=== PATIENT | male | born 1935 | race Caucasian/White ===

== ENCOUNTER → 2016-06-27 | Outpatient (CLI) | payer OTHER, BC | LOC: BHFA 14:45 | PROVIDERS: ATTEND Internal Medicine Cardiovascular Disease | DX: I50.33 Acute on chronic diastolic (congestive) heart failure (principal); R06.02 Shortness of breath; R60.9 Edema, unspecified; E66.9 Obesity, unspecified; J44.9 Chronic obstructive pulmonary disease, unspecified; N18.9 Chronic kidney disease, unspecified ==

== ENCOUNTER 2016-07-31 18:06 | Inpatient (IN) | payer OTHER, BC ==
--- NOTE | 2016-07-31 18:36 | CPEKG ---
Heart Rate: 66 RR Interval: 909 P-R Interval: 167 QRSD Interval: 102 QT Interval: 492 QTC Interval: 516 P [place]: 0 QRS [place]: 12 T Wave [place]: 181 EKG Severity - ABNORMAL ECG - EKG Impression: UNKNOWN RHYTHM, IRREGULAR RATE 49-93 EKG Impression: PROBABLE INFERIOR INFARCT, AGE INDETERMINATE EKG Impression: PROBABLE POSTERIOR INFARCT EKG Impression: REPOL ABNRM SUGGESTS ISCHEMIA, DIFFUSE LEADS EKG Impression: PROLONGED QT INTERVAL Electronically Signed By: Sameer Beal 31-Jul-2016 21:03:46
[2016-07-31 18:45] LABS: % IMMATURE GRANULYOCYTES 1.3 % (0.0-1.1); ABSOLUTE IMMATURE GRANULOCYTES 0.19 10^3/uL (0.00-0.10); ADD DIFF? NO; ADD MORPH? NO; ADD SCAN? NO; ATYPICAL LYMPHOCYTE FLAG 0 (0-99); FRAGMENT RBC FLAG 20 (0-99); HEMATOCRIT 31.9 % (40.0-51.0); HEMOGLOBIN 10.1 g/dL (13.7-17.5); LEFT SHIFT FLG 0 (0-99); LIPEMIA HEMOLYSIS FLAG 80 (0-99); MEAN CELL HEMOGLOBIN 23.5 pg (27.9-34.1); MEAN CELL HEMOGLOBIN CONCENTR. 31.7 g/dL (32.4-36.7); MEAN CELL VOLUME 74.2 fL (81.5-99.8); MEAN PLATELET VOLUME 8.5 fL (8.7-11.7); PLATELET CLUMPS FLAG 0 (0-99); PLATELET COUNT 560 10^3/uL (150-400); RED CELL DISTRIBUTION WIDTH 15.8 % (11.5-15.2)
--- NOTE | 2016-07-31 18:54 | EDPHY ---
HPI/HX/ROS/PE/MDM Narrative: CHIEF COMPLAINT: Weakness, multiple falls, hyponatremia, hypokalemia HISTORY OF PRESENT ILLNESS: The patient is an anticoagulated 81 y/o male arriving with his at the referral of his PCP for worsening weakness and frequent falls over the last week. He has a history of atrial fibrillation, COPD , CHF with baseline dyspnea. He was evaluated by Dr. Saleem on 07/27, 5 days ago, and his labs showed hyponatremia at 126 and hypokalemia at 3.1. He's had worse- than-normal shortness of breath since his weakness began and his notes he' s been coughing for the past several months. In addition to several falls this week, he fell and struck his face this morning. His states he became weak and she tried to help him to the ground, but also fell. He denies chest pain at any point. His reports he has not been eating much since symptom onset and he tells me he just isn't hungry. He is minimally contributive during assessment and his provides the majority of the patient's history. No fever, chills, chest pain, palpitations, vomiting, diarrhea, urinary complaints, headache, lightheadedness. REVIEW OF SYSTEMS: Aside from elements discussed in the HPI, a comprehensive 10-point review of systems was reviewed and is negative. PAST MEDICAL HISTORY: COPD, CHF, atrial fibrillation - Xarelto SOCIAL HISTORY: at bedside. Paraprofessional Interpreter: Dr. Saleem PCP: Dr. Gillespie VITAL SIGNS: Reviewed by me GENERAL: Moderately obese, resting comfortably in no respiratory distress. HEENT: Abrasion to left cheek and forehead. Eyes: No icterus, no injection. Mouth: moist mucous membranes. No erythema or lesions. Neck: supple with no adenopathy. LUNGS: Rales to mid chest bilaterally, no wheezes, rhonchi CARDIAC: Irregular rate and rhythm, no rubs, murmurs or gallops. ABDOMEN: Soft, obese abdomen, diffuse mild tenderness, nondistended, bowel sounds normal. BACK: No CVA tenderness. EXTREMITIES: No trauma. Trace pitting pedal edema bilaterally. Range of motion is normal throughout. NEURO: Alert and oriented, grossly nonfocal. SKIN: Warm and dry, no rash. PSYCHIATRIC: Normal mentation, no agitation. Portions of this note were transcribed by a biomedical engineering supervisor. I personally performed a history, physical exam, medical decision making, and confirmed accuracy of information the transcribed note. ED Course: This is an 81 y/o male who presents with a 1-week history of weakness and frequent falls and hyponatremia and hypokalemia on his most recent labs 5 days ago. During his most recent fall this morning he struck the left side of his face. He denies other trauma. He is neurovascularly intact on exam. He has some rales along his mid chest bilaterally on auscultation and mild diffuse abdominal tenderness. His ISTAT here shows Na 122, K 2.2, BUN 71 creatinine 2.9. IV established. Labs drawn. Patient placed on electronic device monitor. Head CT and chest x-ray ordered. 1L IV NS, 10meq IV Potassium, and 60meq PO Potassium administered. The 12 lead EKG was interpreted by myself. Sinus rhythm rate 66, ST depression lateral leads, prolonged QT interval, See hard copy and/or "tracemaster" electronic copy for interpretation. Patient's troponin is elevated at 0.071, with a normal BNP. 2008: Head CT negative. Chest x-ray shows cardiomegaly and poor inspiratory effort. Spoke with hospitalist service. Dr. Oconnell accepts admission. MDM: Differential diagnosis of the patient's weakness was considered including but not limited to electrolyte abnormality, anemia, cardiac ischemia, CVA, spinal cord abnormality, and infectious causes. - Data Points Imaging Results: Imaging Impressions Head CT 07/31/16 18:58 Impression: 1. No significant intracranial abnormality seen. Findings discussed with Marimar Thibodeaux MD at 20:08 hour, 07/31/2016. Chest X-Ray 07/31/16 19:09 Impression: 1. Poor inspiration with compressive changes at the lung bases left side more than right. Allowing for this, no active cardiopulmonary disease seen. Imaging: Discussed imaging studies w/ on call Radiologist, I viewed and interpreted images myself Laboratory Results: Laboratory Results 07/31/16 18:35 07/31/16 18:35 07/31/16 07/31/16 07/31/16 19:02 18:40 18:35 WBC RBC Hgb POC Hgb 11.9 gm/dL L gm/dL (14.5-17.3) Hct POC Hct 35 % L % (42.8-50.6) MCV MCH MCHC RDW Plt Count MPV Neut % (Auto) Lymph % (Auto) [place] % (Auto) Eos % (Auto) Baso % (Auto) Nucleat RBC Rel Count Absolute Neuts (auto) Absolute Lymphs (auto) Absolute Monos (auto) Absolute Eos (auto) Absolute Basos (auto) Absolute Nucleated RBC Immature Gran % Immature Gran # POC Sodium 122 mEq/L L mEq/L (134-144) Sodium 121 mEq/L L mEq/L (134-144) POC Potassium 2.2 mEq/L L* mEq/L (3.3-5.0) Potassium 2.7 mEq/L L* mEq/L (3.5-5.2) POC Chloride 77 mEq/L L mEq/L (96-108) Chloride 76 mEq/L L mEq/L (97-110) Carbon Dioxide 28 mEq/l mEq/l (22-31) Anion Gap 17 mEq/L H mEq/L (8-16) POC BUN 71 mg/dL H mg/dL (7-23) BUN 74 mg/dL H mg/dL (7-23) Creatinine 2.7 mg/dL H mg/dL (0.7-1.3) POC Creatinine 2.9 mg/dL H mg/dL (0.8-1.5) Estimated GFR 23 Glucose 161 mg/dL H mg/dL (70-100) POC Glucose 166 mg/dL H mg/dL (70-100) Calcium 9.9 mg/dL mg/dL (8.5-10.4) Total Bilirubin 0.9 mg/dL mg/dL (0.1-1.4) Conjugated Bilirubin 0.5 mg/dL mg/dL (0.0-0.5) Unconjugated Bilirubin 0.4 mg/dL mg/dL (0.0-1.1) AST 62 IU/L H IU/L (17-59) ALT 137 IU/L H IU/L (21-72) Alkaline Phosphatase 94 IU/L IU/L (38-126) Troponin I 0.071 ng/mL H ng/mL (0-0.034) NT-Pro-B Natriuret Pep 382 pg/mL pg/mL (0-450) Total Protein 7.5 g/dL g/dL (6.3-8.2) Albumin 4.4 g/dL g/dL (3.5-5.0) Lipase 388.0 IU/L H IU/L (23-300) 07/31/16 18:35 WBC 14.97 10^3/uL H 10^3/uL (3.80-9.50) RBC 4.30 10^6/uL L 10^6/uL (4.40-6.38) Hgb 10.1 g/dL L g/dL (13.7-17.5) POC Hgb Hct 31.9 % L % (40.0-51.0) POC Hct MCV 74.2 fL L fL (81.5-99.8) MCH 23.5 pg L pg (27.9-34.1) MCHC 31.7 g/dL L g/dL (32.4-36.7) RDW 15.8 % H % (11.5-15.2) Plt Count 560 10^3/uL H 10^3/uL (150-400) MPV 8.5 fL L fL (8.7-11.7) Neut % (Auto) 82.2 % H % (39.3-74.2) Lymph % (Auto) 5.3 % L % (15.0-45.0) [place] % (Auto) 11.1 % % (4.5-13.0) Eos % (Auto) 0.0 % L % (0.6-7.6) Baso % (Auto) 0.1 % L % (0.3-1.7) Nucleat RBC Rel Count 0.0 % % (0.0-0.2) Absolute Neuts (auto) 12.30 10^3/uL H 10^3/uL (1.70-6.50) Absolute Lymphs (auto) 0.80 10^3/uL L 10^3/uL (1.00-3.00) Absolute Monos (auto) 1.66 10^3/uL H 10^3/uL (0.30-0.80) Absolute Eos (auto) 0.00 10^3/uL L 10^3/uL (0.03-0.40) Absolute Basos (auto) 0.02 10^3/uL 10^3/uL (0.02-0.10) Absolute Nucleated RBC 0.00 10^3/uL 10^3/uL (0-0.01) Immature Gran % 1.3 % H % (0.0-1.1) Immature Gran # 0.19 10^3/uL H 10^3/uL (0.00-0.10) POC Sodium Sodium POC Potassium Potassium POC Chloride Chloride Carbon Dioxide Anion Gap POC BUN BUN Creatinine POC Creatinine Estimated GFR Glucose POC Glucose Calcium Total Bilirubin Conjugated Bilirubin Unconjugated Bilirubin AST ALT Alkaline Phosphatase Troponin I NT-Pro-B Natriuret Pep Total Protein Albumin Lipase Medications Given: Discontinued Medications Potassium Chloride (Potassium Cl 10 Meq (Premix)) 100 mls @ 100 mls/hr IV EDNOW ONE Stop: 07/31/16 19:55 Last Admin: 07/31/16 20:09 Dose: 100 mls Sodium Chloride (Ns) 1,000 mls @ 0 mls/hr IV ONCE ONE PRN Reason: Wide Open Stop: 07/31/16 18:58 Last Admin: 07/31/16 20:09 Dose: 1,000 mls Potassium Chloride (Klor-Con) 60 meq PO ONCE ONE Stop: 07/31/16 18:57 Last Admin: 07/31/16 20:09 Dose: 60 meq Point of Care Test Results: 07/31/16 18:40 POC Sodium 122 L POC Potassium 2.2 L* POC Chloride 77 L POC BUN 71 H POC Creatinine 2.9 H POC Glucose 166 H General Time Seen by Provider: 07/31/16 18:23 Initial Vital Signs: Initial Vital Signs Temperature (C) 36.3 C 07/31/16 18:16 Heart Rate 64 07/31/16 18:16 Respiratory Rate 18 07/31/16 18:16 Blood Pressure 107/64 07/31/16 18:16 O2 Sat (%) 93 07/31/16 18:16 O2 Delivery Mode Nasal Cannula O2 (L/minute) 4 Allergies/Adverse Reactions: No Known Allergies Allergy (Verified 07/31/16 18:15) Home Medications: Medication Instructions Recorded Brimonidine 0.1% [ALPHAGAN P 0.1% 1 drops EACHEYE DAILY 07/31/16 (*)] Diltiazem HCl [Diltiazem 24Hr Cd] 360 mg PO DAILY 07/31/16 Fluticasone Nasal [Flonase Nasal 1 sprays NASAL BID PRN 07/31/16 [place] (RX)] Latanoprost 0.005% [Xalatan 0.005% 1 drops EACHEYE HS 07/31/16 (*)] Metolazone [Zaroxolyn 2.5 mg (RX)] 2.5 mg PO MOFR 07/31/16 Rivaroxaban [Xarelto 15mg (*)] 15 mg PO DAILY@18 07/31/16 Spironolactone [Aldactone 25 MG 25 mg PO DAILY 07/31/16 (*)] Torsemide [Demadex] 60 mg PO BID 07/31/16 Umeclidinium Brm/Vilanterol Tr 1 each IH DAILY 07/31/16 [Anoro Ellipta 62.5-25 Mcg INH] Departure - Departure Disposition: [facility] Inpatient Acute Clinical Impression: Hyponatremia, Hypokalemia, Weakness, Multiple falls Condition: Fair Report Scribed for: Marimar Thibodeaux Report Scribed by: Bettina South Date of Report: 07/31/16 Time of Report: 18:54
[2016-07-31] MEDS ORDERED: POTASSIUM Cl (KCl) 100 ML IV ONE (18:56)
[2016-07-31] MEDS ORDERED: POTASSIUM CL 20 MEQ TAB PO ONE ×2 (18:56→22:35)
[2016-07-31] MEDS ORDERED: NS 1,000 ML IV ONE (18:57)
[2016-07-31 19:05] LABS: ALANINE AMINOTRANSFERASE 137 IU/L (21-72); ALBUMIN 4.4 g/dL (3.5-5.0); ALKALINE PHOSPHATASE 94 IU/L (38-126); ANION GAP 17 mEq/L (8-16); ASPARTATE AMINOTRANSFERASE 62 IU/L (17-59); BILIRUBIN,TOTAL 0.9 mg/dL (0.1-1.4); BILIRUBIN-CONJUGATED 0.5 mg/dL (0.0-0.5); BILIRUBIN-UNCONJUGATED 0.4 mg/dL (0.0-1.1); CALCIUM 9.9 mg/dL (8.5-10.4); CARBON DIOXIDE 28 mEq/l (22-31); CHLORIDE 76 mEq/L (97-110); CREATININE 2.7 mg/dL (0.7-1.3); GLOMERULAR FILTRATION RATE 23; GLUCOSE 161 mg/dL (70-100); SODIUM 121 mEq/L (134-144); TOTAL PROTEIN 7.5 g/dL (6.3-8.2)
[2016-07-31 19:08] LABS: POTASSIUM 2.7 mEq/L (3.5-5.2)
[2016-07-31 19:15] LABS: TROPONIN I 0.071 ng/mL (0-0.034)
[2016-07-31] MEDS ORDERED: ONDANSETRON DISINTEGRATING 4 MG TAB PO PRN (20:50)
[2016-07-31] MEDS ORDERED: ONDANSETRON 4 MG/2 ML VIAL IVP PRN (20:50)
[2016-07-31] MEDS ORDERED: ACETAMINOPHEN 325 MG TAB PO PRN (20:50)
[2016-07-31] MEDS ORDERED: NS W/ 20 KCl/L 1,000 ML IV SCH (21:00)
[2016-07-31] MEDS ORDERED: FLUTICASONE NASAL 120 SPRAYS/16 GM MDI NS PRN (21:09)
[2016-07-31 21:57] LABS: ANION GAP 14 mEq/L (8-16); CARBON DIOXIDE 28 mEq/l (22-31); CHLORIDE 81 mEq/L (97-110); CREATININE 2.5 mg/dL (0.7-1.3); GLOMERULAR FILTRATION RATE 25; GLUCOSE 158 mg/dL (70-100); SODIUM 123 mEq/L (134-144)
[2016-07-31 22:09] LABS: TROPONIN I 0.057 ng/mL (0-0.034)
[2016-07-31 22:12] LABS: POTASSIUM 2.7 mEq/L (3.5-5.2)
--- NOTE | 2016-07-31 22:19 | GHP ---
[f rep st] HISTORY AND PHYSICAL DATE OF ADMISSION: 07/31/2016 HISTORY: The patient is a pleasant 81-year-old gentleman with history of COPD, obstructive sleep ap dior, who presents to the hospital with generalized weakness. It sounds like the patient had poor p. o. intake over the last couple of weeks. He has been using his CPAP in the evenings. He has also b een taking his diuretics as prescribed. He does take 3 diuretics, Zaroxolyn torsemide, and spironol actone. He denies palpitations. He had a fall today. He takes Xarelto for stroke prophylaxis for atrial fi brillation. He has 1 at 1 or 2 alcoholic drinks per day. Denies having more. He denies focal weak ness, nausea, vomiting, diarrhea, fever, chills, shortness of breath. Actually, he has shortness of breath that is somewhat chronic, but it is not worse. He denies worsening lower extremity edema. REVIEW OF SYSTEMS: Complete 10-point review of systems conducted and negative, except as noted in t he HPI. PAST MEDICAL HISTORY: 1. COPD. 2. Hypertension. 3. Obstructive sleep apnea. 4. Atrial fibrillation. 5. Diastolic heart failure. 6. Glaucoma. ALLERGIES: No known drug allergies. HOME MEDICATIONS: Metolazone Saturday and Saturday, spironolactone daily, torsemide twice daily, brimon idine eye drops, diltiazem, Flonase, latanoprost eyedrops, rivaroxaban, Anoro Ellipta inhaler. 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 Does not smoke cigarettes. He smoked cigars in the past, quit in the . One alcoholic drink a day. FAMILY HISTORY: Parents . PHYSICAL EXAMINATION: VITAL SIGNS: Temp 36.6, blood pressure 115/71, pulse 58, breathing 18 times a minute, 96% on 4 L. General: Weak, but no acute distress. HEENT: Sclerae anicteric. Oropharyn x clear. Mucous membranes moist. NECK: Supple without lymphadenopathy or JVD. LUNGS: Clear to a uscultation anterolaterally. HEART: S1, S2, without murmurs. ABDOMEN: Soft, nontender, nondisten ded. It is obese. LOWER EXTREMITIES: Trace edema bilaterally. Calves nontender. SKIN: Without rash. NEUROLOGIC: Nonfocal. LABORATORY DATA: White count is 15.9, hematocrit 31.9, which is lower than his baseline of 49.3, MC V is 74.2, has previously been high at 101, platelets are 560. Sodium 121, potassium 2.7, chloride 76, bicarb 28, BUN 74, creatinine 2.7, glucose 161. AST is elevated at 62, ALT elevated at 137. Tr oponin 0.071. Lipase is 388. Noncontrast head CT shows no significant intracranial abnormality. Chest x-ray, interpreted by me, shows lordotic film with what I believe to be soft-tissue density ov er the diaphragms as opposed to infiltrate. EKG interpreted by me shows likely atrial fibrillation at 66 with normal axis, deep Q wave in lead I II, no ST or T-wave changes. This is an abnormal EKG, but compared with the prior EKG he had in [place], it is similar. I have discussed the case with Dr. Marimar Thibodeaux. ASSESSMENT AND PLAN: 81-year-old gentleman with sleep apnea, presents with weakness and falls, with hyponatremia, hypokalemia, kidney injury, and new microcytic anemia. 1. Kidney injury. I think the patient is overdiuresed in the setting of poor p.o. intake. On revi ew on prior notes, it sounds like he may have previously been noncompliant with his CPAP but now is more compliant, although not 100% certain of this. Will hold his diuretics. Will give him a liter of IV fluids with 20 of K and follow. I suspect this is prerenal in nature. 2. Hypokalemia. I think that since he takes 2 loop diuretics, it is probably what is driving this process. He received some potassium in the emergency department. I will give him some IV fluids wi th potassium. I am reluctant to put him on the protocol, given his concomitant kidney injury, so we will replete his potassium and follow in the morning. Will follow him on telemetry. 3. Hyponatremia. This is overdiuresis. Will provide him with a little bit of IV fluids and check again in the morning, although I will check a stat metabolic panel now to ensure that it has not bee n overcorrected. 4. Microcytic anemia. This is concerning for blood loss, likely contributing to his weakness, alth ough he is not that anemic. Will send some iron studies. If that is positive, he needs colonoscopy or at least consideration of one. 5. Atrial fibrillation. Continue with diltiazem and rivaroxaban. 6. Prophylaxis: Therapeutically anticoagulated. 7. Disposition: Inpatient status. PT/OT. /[id number]/MODL
[2016-08-01 05:32] LABS: % IMMATURE GRANULYOCYTES 0.9 % (0.0-1.1); ABSOLUTE IMMATURE GRANULOCYTES 0.12 10^3/uL (0.00-0.10); ADD DIFF? NO; ADD MORPH? NO; ADD SCAN? NO; ATYPICAL LYMPHOCYTE FLAG 0 (0-99); FRAGMENT RBC FLAG 0 (0-99); HEMATOCRIT 27.1 % (40.0-51.0); HEMOGLOBIN 8.5 g/dL (13.7-17.5); LEFT SHIFT FLG 10 (0-99); LIPEMIA HEMOLYSIS FLAG 80 (0-99); MEAN CELL HEMOGLOBIN 23.7 pg (27.9-34.1); MEAN CELL HEMOGLOBIN CONCENTR. 31.4 g/dL (32.4-36.7); MEAN CELL VOLUME 75.5 fL (81.5-99.8); MEAN PLATELET VOLUME 9.2 fL (8.7-11.7); PLATELET CLUMPS FLAG 0 (0-99); PLATELET COUNT 473 10^3/uL (150-400); RED BLOOD CELL COUNT 3.59 10^6/uL (4.40-6.38); RED CELL DISTRIBUTION WIDTH 15.7 % (11.5-15.2)
[2016-08-01 06:46] LABS: ANION GAP 10 mEq/L (8-16); CARBON DIOXIDE 26 mEq/l (22-31); CHLORIDE 87 mEq/L (97-110); CREATININE 2.2 mg/dL (0.7-1.3); GLOMERULAR FILTRATION RATE 29; GLUCOSE 115 mg/dL (70-100); POTASSIUM 3.4 mEq/L (3.5-5.2); SODIUM 123 mEq/L (134-144)
[2016-08-01 06:55] LABS: % SATURATION 3 % (20-55); TOTAL IRON BINDING CAPACITY 491 ug/dL (260-490)
[2016-08-01 06:58] LABS: TROPONIN I 0.072 ng/mL (0-0.034)
[2016-08-01 07:21] LABS: FERRITIN - BCH 8.6 ng/mL (17.9-464.0)
[2016-08-01] MEDS: VILANTEROL TR IH SCH (08:20)
[2016-08-01] MEDS: UMECLIDINIUM BRM IH SCH (08:20)
[2016-08-01] MEDS ORDERED: POTASSIUM CL 20 MEQ TAB PO ONE (09:02)
--- NOTE | 2016-08-01 09:19 | HOSPPROG ---
Hospitalist Progress Note Assessment/Plan: # weakness d/t dehydration - PT/OT eval # hyponatremia, hypovolemic - follow while holding diuretics, check Q6 today # hypokalemia d/t overdiuresis - better, continue to replete # Fe defic anemia - check FOBT; needs GI eval # elev trop - suspect demand # LOPEZ, pre-renal, improving - follow closely today # a-fib (NSR now): cont dilt and xarelto # systolic murmur, previous echo (03/2015) without significant valvular pathology - agree with echo Subjective: still feels very weak Objective: Vital Signs Temp Pulse Resp BP Pulse Ox 36.6 C 64 20 118/57 L 93 08/01/16 03:31 08/01/16 08:22 08/01/16 08:22 08/01/16 03:31 08/01/16 08:22 Laboratory Results 08/01/16 03:57 08/01/16 03:57 07/31/16 08/01/16 08/02/16 05:59 05:59 05:59 Intake Total 1550 Output Total [address] head reviewed chart reviewed ECG reviewed - Physical Exam Constitutional: no apparent distress, appears nourished Cardiovascular: regular rate and rhythym, systolic murmur (3/6, no S1S2), irregularly irregular, No tachycardia, No bradycardia Respiratory: no respiratory distress, no rales or rhonchi, clear to auscultation Gastrointestinal: normoactive bowel sounds, soft, non-tender abdomen, no palpable masses ICD10 Worksheet Patient Problems: Problems Problem Status Onset Spondylolisthesis of lumbar region Acute CHF (congestive heart failure) Acute Bilateral lower leg cellulitis Acute Hyponatremia Acute Hypokalemia Acute Weakness Acute Multiple falls Acute
[2016-08-01] MEDS: DILTIAZEM CD 180 MG CAP PO SCH (09:27)
[2016-08-01] MEDS: BRIMONIDINE 0.1% 5 ML OPHT.BTL EACHEYE SCH (09:28)
--- NOTE | 2016-08-01 11:28 | ECHO ---
[id number] + + [address] : : [place] [address] : : [phone] + + Adult Echocardiographic Report + -----+ :Name: ARMANDO REGALADO DStudy Date: 08/01/2016 08:07 AM : : Hospital Admission Number: [id number] Location : 207: :: 1935 Gender: Male Height: 66 in : :Age: 81 yrs Race: WH Weight: 220 lb : :Reason For Study: History of CHF : : BSA: 2.1 meters2 : + -----+ MMode/2D Measurements \T\ Calculations LVIDd: 3.9 cm EDV(Teich): 65.6 ml Ao root diam: 3.5 cm LVOT diam: 2.1 cm LA dimension: 3.7 cm LVOT area: 3.5 cm2 Normal Measurement Values: + + :LVIDd (3.5-5.7cm) IVSd (0.6-1.1cm) LVPWd (0.6-1.1cm) Aortic Root (2.0-3.7cm)Left Atrium (1.5-4.0cm): :LV Vol(d) (76-115ml) LV Vol(s) (29-48ml) Ejec Fraction (50-65%)PV Todd (0.6- 1.2m/s) TV Todd (0.4-1.0m/s) : :MV E Todd (0.8-1.0m/s)MV A Otdd (0.3-1.0m/s)LVOT Todd (0.7-1.2m/s) Asc Ao Todd ( 0.9-1.8m/s) : + + Doppler Measurements \T\ Calculations MV E max todd: Ao mean PG: LV V1 mean PG: SV(LVOT): 77.0 cm/sec 19.0 mmHg 2.1 mmHg 69.6 ml MV A max todd: Ao V2 mean: LV V1 mean: 65.6 cm/sec 199.8 cm/sec 64.4 cm/sec MV E/A: 1.2 Ao V2 VTI: 54.2 cm LV V1 VTI: 20.0 cm JIM(I,D): 1.3 cm2 Left Ventricle The left ventricle is normal in size. There is normal left ventricular wall thickness. The left ventricle is hyperdynamic. Ejection Fraction = 70-75%. No regional wall motion abnormalities noted. Right Ventricle The right ventricle is normal in size and function. Atria The left atrium is mildly dilated. Right atrial size is normal. The interatrial septum is intact with no evidence for an atrial septal defect. Mitral Valve Calcified mitral apparatus. There is no evidence of mitral valve prolapse. There is no mitral valve stenosis. Tricuspid Valve Normal tricuspid valve. There is trace tricuspid regurgitation. Aortic Valve Moderate aortic valve calcification. Mild valvular aortic stenosis. AV max PG is 34mmHG. AV mean PG is 19mmHG. There is no aortic insufficiency. Pulmonic Valve The pulmonic valve is normal in structure and function. There is no pulmonic valvular regurgitation. Great Vessels The aortic root is normal size. Pericardium/Pleural There is no pericardial effusion. There is a fat pad seen. Conclusion A complete two-dimensional transthoracic echocardiogram was performed (2D, M-mode, Doppler and color flow Doppler). The study was technically difficult. The study was technically limited. The left ventricle is hyperdynamic. Ejection Fraction = 70-75%. The left atrium is mildly dilated. There is trace tricuspid regurgitation. Moderate aortic valve calcification. Mild valvular aortic stenosis. AV max PG is 34mmHG. AV mean PG is 19mmHG. There is a fat pad seen. Final Reading Physician: Tao Russell signed on 08/01/2016 11:26 AM Ordering Physician: Abilio Oconnell Performed By: Fannie Diaz RDCS
[2016-08-01 12:57] LABS: ANION GAP 10 mEq/L (8-16); CALCIUM 9.2 mg/dL (8.5-10.4); CARBON DIOXIDE 26 mEq/l (22-31); CHLORIDE 86 mEq/L (97-110); GLOMERULAR FILTRATION RATE 32; GLUCOSE 132 mg/dL (70-100); POTASSIUM 3.1 mEq/L (3.5-5.2); SODIUM 122 mEq/L (134-144)
[2016-08-01] MEDS ORDERED: NS 500 ML IV ONE (14:24)
[2016-08-01 15:43] LABS: COLOR YELLOW; LEUKOCYTE ESTERASE,URINE NEGATIVE (NEGATIVE); NITRITE,URINE NEGATIVE (NEGATIVE)
[2016-08-01] MEDS ORDERED: RIVAROXABAN 15 MG TAB PO SCH (18:00)
[2016-08-01 19:10] LABS: ANION GAP 9 mEq/L (8-16); CALCIUM 9.3 mg/dL (8.5-10.4); CARBON DIOXIDE 27 mEq/l (22-31); CHLORIDE 90 mEq/L (97-110); CREATININE 1.8 mg/dL (0.7-1.3); GLOMERULAR FILTRATION RATE 36; GLUCOSE 130 mg/dL (70-100); POTASSIUM 3.6 mEq/L (3.5-5.2); SODIUM 126 mEq/L (134-144)
[2016-08-01] MEDS: LATANOPROST 0.005% 2.5 ML OPHT DROPS EACHEYE SCH (20:41)
[2016-08-02 02:14] LABS: ANION GAP 8 mEq/L (8-16); CALCIUM 8.9 mg/dL (8.5-10.4); CARBON DIOXIDE 25 mEq/l (22-31); CHLORIDE 94 mEq/L (97-110); CREATININE 1.5 mg/dL (0.7-1.3); GLOMERULAR FILTRATION RATE 45; GLUCOSE 112 mg/dL (70-100); POTASSIUM 3.1 mEq/L (3.5-5.2); SODIUM 127 mEq/L (134-144)
[2016-08-02 04:58] LABS: % IMMATURE GRANULYOCYTES 1.2 % (0.0-1.1); ABSOLUTE IMMATURE GRANULOCYTES 0.15 10^3/uL (0.00-0.10); ADD DIFF? NO; ADD MORPH? NO; ADD SCAN? NO; ATYPICAL LYMPHOCYTE FLAG 10 (0-99); FRAGMENT RBC FLAG 20 (0-99); HEMOGLOBIN 8.1 g/dL (13.7-17.5); LEFT SHIFT FLG 10 (0-99); LIPEMIA HEMOLYSIS FLAG 80 (0-99); MEAN CELL HEMOGLOBIN 23.1 pg (27.9-34.1); MEAN CELL VOLUME 76.9 fL (81.5-99.8); PLATELET CLUMPS FLAG 0 (0-99); PLATELET COUNT 466 10^3/uL (150-400); RED BLOOD CELL COUNT 3.51 10^6/uL (4.40-6.38); RED CELL DISTRIBUTION WIDTH 15.8 % (11.5-15.2)
[2016-08-02 06:26] LABS: ANION GAP 10 mEq/L (8-16); CALCIUM 9.1 mg/dL (8.5-10.4); CARBON DIOXIDE 26 mEq/l (22-31); CHLORIDE 93 mEq/L (97-110); CREATININE 1.5 mg/dL (0.7-1.3); GLOMERULAR FILTRATION RATE 45; GLUCOSE 100 mg/dL (70-100); MAGNESIUM 2.6 mg/dL (1.6-2.3); POTASSIUM 3.3 mEq/L (3.5-5.2); SODIUM 129 mEq/L (134-144)
[2016-08-02] MEDS ORDERED: NS 500 ML IV ONE (11:23)
[2016-08-02] MEDS ORDERED: POTASSIUM CL 20 MEQ TAB PO ONE (11:27)
--- NOTE | 2016-08-02 11:31 | HOSPPROG ---
Hospitalist Progress Note Assessment/Plan: # early satiety/Fe defic anemia - will eval with CT today (mild R sided abd pain ) and EGD tomorrow (Dr Bridges involved) # weakness d/t dehydration - PT/OT eval - rec'd SNF yesterday; continue to follow # hyponatremia, hypovolemic - better today - small NS bolus today # hypokalemia d/t overdiuresis - also better, continue to replete # elev trop - suspect demand # LOPEZ, pre-renal, improving - may be at baseline - follow closely today # a-fib (NSR now): cont dilt and xarelto (holding for EGD) # systolic murmur, previous echo (03/2015) - mild on echo Subjective: still not able to eat much food; R side of his abd painful Objective: Vital Signs Temp Pulse Resp BP Pulse Ox 37.2 C 70 20 104/64 96 08/02/16 04:00 08/02/16 08:00 08/02/16 08:00 08/02/16 08:00 08/02/16 08:00 Laboratory Results 08/02/16 03:50 08/02/16 03:50 08/01/16 08/02/16 08/03/16 05:59 05:59 05:59 Intake Total 1550 3050 Output Total 600 1515 Balance [address] Bridges - EGD tomorrow - Physical Exam Constitutional: no apparent distress, appears nourished, obese Cardiovascular: regular rate and rhythym, systolic murmur, No diastolic murmur, No pulses symmetric bilaterally Respiratory: no respiratory distress, no rales or rhonchi, clear to auscultation Gastrointestinal: normoactive bowel sounds, distension, No no palpable masses, No reyes's sign, No hepatosplenomegally ICD10 Worksheet Patient Problems: Problems Problem Status Onset Spondylolisthesis of lumbar region Acute CHF (congestive heart failure) Acute Bilateral lower leg cellulitis Acute Hyponatremia Acute Hypokalemia Acute Weakness Acute Multiple falls Acute
[2016-08-02] MEDS: VILANTEROL TR IH SCH (11:56)
[2016-08-02] MEDS: UMECLIDINIUM BRM IH SCH (11:56)
[2016-08-02] MEDS: BRIMONIDINE 0.1% 5 ML OPHT.BTL EACHEYE SCH (12:39)
[2016-08-02] MEDS: DILTIAZEM CD 180 MG CAP PO SCH (12:39)
--- NOTE | 2016-08-02 19:30 | GCON ---
[f rep st] CONSULTATION REFERRING PHYSICIAN: Renzo Wise MD REASON FOR CONSULTATION: Iron deficiency anemia, epigastric pain, anorexia. HISTORY OF PRESENT ILLNESS: The patient is a pleasant, 81-year-old male, with past medical history significant for COPD, hypertension, obstructive sleep apnea, atrial fibrillation, diastolic heart fa ilure, and glaucoma. He presents to the hospital with generalized weakness and decreased p.o. intak e with early satiety and anorexia. He denies any dysphagia, nausea, vomiting, hematemesis, melena, hematuria, change in bowel habits. He has atrial fibrillation, has been on Xarelto for stroke proph ylaxis. Looking back through his laboratory data, it appears he had development of a microcytic ane bruce somewhere between February 2016 and June 2016. He does have a history of colon polyps. He had a colonoscopy in 2006, where he had multiple adenomas removed. There were 2 polyps in this ileocec al valve, measured between 6 and 12 mm by report, a 12 mm polyp in the rectum, and two 6 mm polyps i n the sigmoid colon. The pathology report from those sigmoid polyps were hyperplastic rectal, and i leocecal valve polyps were tubular adenomas. He was recommended to have a colonoscopy again in 2009 , but that was never completed despite our office contacting him at that time. He has been admitted for his renal failure, hyponatremia, microcytic anemia, AFib. Because of his upper GI symptoms and anemia, I have been called to help and evaluate. PAST MEDICAL HISTORY: COPD, hypertension, obstructive sleep apnea, atrial fibrillation, diastolic h eart failure, glaucoma. PAST SURGICAL HISTORY: Includes tonsillectomy, a tendon in his arm, umbilical hernia. MEDICATIONS: At home include: Metolazone, spironolactone, torsemide, brimonidine, diltiazem, Flona se, latanoprost eye drops, Xarelto, Ellipta inhaler. In hospital: He is on the following medications: Tylenol p.r.n., brimonidine tartrate 1 drop each eye, diltiazem 360 mg daily, Flonase 1 spray b.i.d. p.r.n., latanoprost eye drops q.h.s., Zofran p.r .n., Xarelto 50 mg daily; his last dose was August 01 at 6 p.m. ALLERGIES: No known drug allergies. SOCIAL HISTORY: He used to smoke a pipe, but he stopped many years ago. He does not smoke cigarett es. He has 1-2 drinks of alcohol a day. He drinks vodka. FAMILY HISTORY: No cancers to his knowledge. REVIEW OF SYSTEMS: A complete review of systems was performed and is negative other than noted in t he HPI. Pertinent positives include anorexia, GI symptoms noted above. Pertinent positives include no chest pain, diaphoresis, palpitations, vomiting, hematemesis, alteration in bowel habits, hematu heather, hematochezia. PHYSICAL EXAMINATION: GENERAL: Elderly male, sitting in his bed, chronically ill-appearing, no acu te distress. VITAL SIGNS: Blood pressure 106/62, pulse is 83, respirations are 20, 97% on 4 L nasa l cannula. Temperature 37.2. HEENT: Eyes: Anicteric. [place]. EOMI. Mouth: No lesions. NECK: Supple. No thyroid mass, no lymphadenopathy. BACK: No spine tenderness or CVA tenderness. LUNGS: Clear. CARDIAC: S1, S2. Irregular. No murmurs, rubs or gallops appreciated. ABDOMEN: Bowel s ounds are normal in pitch and frequency. Soft with epigastric and subxiphoid tenderness, difficult to assess hepatosplenomegaly secondary to body habitus. EXTREMITIES: Trace edema. No cyanosis. H e does have some venous stasis changes, however. SKIN: No rashes. NEUROLOGIC: Cranial nerves int act, nonfocal. LABORATORY DATA: From today: WBC 12.98, hemoglobin 8.1, hematocrit 27.0, platelet count is 466. F rom today: Sodium 129, potassium 3.3, chloride 93, bicarb is 26, BUN 43, creatinine 1.5. Glucose 1 00, calcium 9.1, magnesium 2.6. On August 01, iron sat is 3%, ferritin is 8.6. On July 31, AST makayla vated at 62, ALT elevated at 137, alkaline phosphatase normal at 94, bilirubin 0.1. From March of 2015, his LFTs are normal with AST 18, ALT 30, alkaline phosphatase 64. On July 31, lipase was 38 8. From February 28, 2016, hemoglobin 14.9, hematocrit 43.8, MCV normal at 94.1. On June 20, 2016 , hemoglobin dropped to 10.6, hematocrit 35.0. At that point, his MCV was still normal, but lower a t 86.8. On July 27, 2016, his hemoglobin was 9.6, hematocrit was 30.7. His MCV is now low at 76.6. IMAGING: Head CT scan from July 31, 2016, was no significant abnormality seen. ASSESSMENT: An 81-year-old male, with new diagnosis of iron deficiency anemia since February 6, who is on Xarelto for atrial fibrillation, who presents with anorexia and epigastric abdominal pa in. He also has a history of colon polyps, as noted above. RECOMMENDATIONS: 1. CT scan, as per hospitalist, that we will order today. 2. Tentatively scheduled for EGD tomorrow for evaluation of epigastric pain and iron deficiency ane bruce. 3. Pending results of CT scan and EGD, we may recommend colonoscopy. If he has some significant ma lignancy that does not seem to be curable, I do not know if I would recommend a colonoscopy at the p resent time. 4. Hold anticoagulation for now. 5. For now, avoid aspirin, nonsteroidal antiinflammatory drugs. 6. We will start Protonix tonight. 7. Follow up CT scan results. 8. Further recommendations to follow results of the above and clinical course. Certainly, his new onset iron deficiency anemia and anorexia are concerning for upper GI source. Ul cer disease is certainly more likely than malignancy, but malignancy is certainly in the differentia l. The patient is 7 years overdue for colonoscopy, and certainly colon cancer can cause iron defici ency anemia, but it should not cause any significant anorexia, unless there is significant liver met astasis, etc. If the CT scan does not show any obvious abnormality that would require endoscopy, ot her than EGD, i.e. pancreatic mass that would require EUS, I would cancel the EGD and have him sched uled for EGD and EUS with my partners. If the EGD is unrevealing for any evidence of iron deficienc y anemia, then certainly would recommend a colonoscopy. Given his multiple medical issues, including COPD, obstructive sleep apnea, hypertension, and antico agulation with a higher risk procedure than normal, he will be monitored continuously for single kris e EKG, oxygen saturation, and have a blood pressure every 5 minutes. A registered nurse will be pre sent during the entire procedure to monitor the patient. Thank you for allowing me to participate in the patient's healthcare. Do not hesitate to call me wi th any questions. /[id number]/MODL
[2016-08-02] MEDS: LATANOPROST 0.005% 2.5 ML OPHT DROPS EACHEYE SCH (23:02)
[2016-08-03 04:40] LABS: ABSOLUTE IMMATURE GRANULOCYTES 0.13 10^3/uL (0.00-0.10); ADD DIFF? NO; ADD MORPH? NO; ADD SCAN? NO; ATYPICAL LYMPHOCYTE FLAG 10 (0-99); FRAGMENT RBC FLAG 20 (0-99); HEMATOCRIT 26.4 % (40.0-51.0); HEMOGLOBIN 7.9 g/dL (13.7-17.5); LEFT SHIFT FLG 10 (0-99); LIPEMIA HEMOLYSIS FLAG 70 (0-99); MEAN CELL HEMOGLOBIN 23.1 pg (27.9-34.1); MEAN CELL HEMOGLOBIN CONCENTR. 29.9 g/dL (32.4-36.7); MEAN CELL VOLUME 77.2 fL (81.5-99.8); MEAN PLATELET VOLUME 9.2 fL (8.7-11.7); PLATELET CLUMPS FLAG 0 (0-99); PLATELET COUNT 464 10^3/uL (150-400); RED BLOOD CELL COUNT 3.42 10^6/uL (4.40-6.38); RED CELL DISTRIBUTION WIDTH 15.9 % (11.5-15.2)
[2016-08-03 04:52] LABS: INR 1.46 (0.83-1.16); PROTIME(PATIENT) 17.7 SEC (12.0-15.0)
[2016-08-03 05:02] LABS: ANION GAP 7 mEq/L (8-16); CALCIUM 8.9 mg/dL (8.5-10.4); CARBON DIOXIDE 26 mEq/l (22-31); CHLORIDE 94 mEq/L (97-110); CREATININE 1.3 mg/dL (0.7-1.3); GLOMERULAR FILTRATION RATE 53; GLUCOSE 102 mg/dL (70-100); POTASSIUM 3.7 mEq/L (3.5-5.2); SODIUM 127 mEq/L (134-144)
[2016-08-03] MEDS: VILANTEROL TR IH SCH (09:47)
[2016-08-03] MEDS: UMECLIDINIUM BRM IH SCH (09:47)
[2016-08-03] MEDS: BRIMONIDINE 0.1% 5 ML OPHT.BTL EACHEYE SCH (10:22)
[2016-08-03] MEDS: DILTIAZEM CD 180 MG CAP PO SCH (10:22)
[2016-08-03] MEDS: SODIUM FERRIC GLUCONAT/SUCROSE 125 MG in NS 100 ML IV SCH (11:06)
[2016-08-03] MEDS ORDERED: PROPOFOL/EMULSION 500 MG/50 ML BOTTLE IV ONE (14:59)
[2016-08-03] MEDS ORDERED: REMIFENTANIL HCL 1 MG VIAL ONE (14:59)
[2016-08-03] MEDS ORDERED: PROPOFOL 200 MG/20 ML VIAL ONE (14:59)
[2016-08-03] MEDS ORDERED: ROCURONIUM 50 MG/5 ML VIAL ONE (15:02)
[2016-08-03] MEDS ORDERED: PHENYLEPHRINE HCL 100 MCG/ML SYR ONE (15:03)
[2016-08-03] MEDS ORDERED: DEXAMETHASONE 4 MG/ML VIAL ONE (15:03)
[2016-08-03] MEDS ORDERED: SUCCINYLCHOLINE CHLORIDE*ANESTHESIA ONLY*200 MG/10 ML SYR IVP ONE (15:10)
[2016-08-03] MEDS ORDERED: ONDANSETRON 4 MG/2 ML VIAL ONE (15:28)
--- NOTE | 2016-08-03 15:33 | POSTOPPROG ---
Post Op Note Date of Operation: 08/03/16 Surgeon: Aguilar Bridges Anesthesiologist: Azar Anesthesia: Other (Specify) (IV general) Pre-op Diagnosis: anorexia, iron def anemia Post-op Diagnosis: gastritis with small amount adherent heme, nml duodenum, esoph erythema Indication: anorexia, iron def anemia Procedure: egd and bx Findings: esoph erythema no esophagitis, gastritis with heme, nml duodenum Inf/Abcess present in the surg proc area at time of surgery?: No EBL: Minimal (few ml from gastric bx) Total fluids administered: 350 NS Drains: Constavac (none immediate)
--- NOTE | 2016-08-03 15:57 | HOSPPROG ---
Hospitalist Progress Note Assessment/Plan: # early satiety- CT abdomen (personally reviewed and interpreted) large amounts of mesenteric fat no ascites seen - plan for EGD today # Fe defic anemia - will start IV iron while patient hospitalized-oxygen saturations 93% on 2 L - workup as above with Gastroenterology # weakness d/t dehydration - PT/OT eval - rec'd SNF # hyponatremia, hypovolemic - sodium 127 today - continue IV fluids while NPO # hypokalemia 2/2 overdiuresis - potassium 3.7 this a.m. - continue to replete # elev trop - suspect demand # LOPEZ, pre-renal, creatinine 2.7-> 1.3 this a.m. - follow closely # a-fib -cont dilt and xarelto (holding for EGD) # systolic murmur, previous echo (03/2015) - mild on echo # prophylaxis- holding Xarelto for EGD # diet NPO # disposition greater than 2 midnights as patient requires more diagnostic workup I have discussed the case with the nurse we will initiate IV iron while patient is hospitalized Subjective: feels tired Objective: Vital Signs Temp Pulse Resp BP Pulse Ox 36.9 C 72 18 122/62 H 93 08/03/16 11:13 08/03/16 11:13 08/03/16 11:13 08/03/16 11:13 08/03/16 11:13 Laboratory Results 08/03/16 03:47 08/03/16 03:47 08/02/16 08/03/16 08/04/16 05:59 05:59 05:59 Intake Total 3050 1150 420 Output Total 1515 600 200 Balance 1535 550 220 PT 17.7 SEC (12.0-15.0) H 08/03/16 03:47 INR 1.46 (0.83-1.16) H 08/03/16 03:47 - Physical Exam Constitutional: obese Eyes: anicteric sclera Ears, Nose, Mouth, Throat: moist mucous membranes Cardiovascular: regular rate and rhythym, systolic murmur Respiratory: no respiratory distress, no rales or rhonchi Gastrointestinal: normoactive bowel sounds, distension, No tenderness Genitourinary: no bladder fullness Skin: warm, normal color Musculoskeletal: No asymmetric calves Neurologic: AAOx3 Psychiatric: interacting appropriately, depressed Lymph, Heme, Immunologic: no cervical LAD ICD10 Worksheet Patient Problems: Problems Problem Status Onset Hypokalemia Acute Hyponatremia Acute Multiple falls Acute Weakness Acute Bilateral lower leg cellulitis Acute CHF (congestive heart failure) Acute Spondylolisthesis of lumbar region Acute
--- NOTE | 2016-08-03 17:12 | GPN ---
[f rep st] PROCEDURE NOTE PROCEDURE PERFORMED: Esophagogastroduodenoscopy with biopsy. INDICATION: Anorexia, epigastric pain, iron-deficiency anemia. PREOPERATIVE DIAGNOSIS: Rule out peptic ulcer disease. POSTOPERATIVE DIAGNOSES: 1. Mild esophageal erythema with no significant esophagitis. 2. Gastritis with small punctate heme present in both the antrum and body. 3. Small erosion in duodenal bulb. No evidence of ulcerations. Otherwise normal duodenal mucosa i n a sweep. INFORMED CONSENT: I had a detailed discussion with the patient regarding the procedure, alternative s, benefits, and risks including bleeding, perforation, infection, risk of medication. Informed con sent was signed and witnessed. COMPLICATIONS: None immediate. MEDICATIONS USED: General endotracheal intubation as per Dr. Askew. DESCRIPTION OF PROCEDURE: After adequate endotracheal intubation, the patient was repositioned in t he left lateral decubitus position. The forward viewing upper endoscope was inserted via oropharynx and advanced under direct visualization down the esophagus. The esophageal mucosa was normal witho ut evidence of esophagitis in the proximal mid esophagus. In the distal esophagus, there were no ul cerations but there was esophageal erythema consistent with some esophageal reflux. The endoscope w as advanced into the stomach. There was mild gastritis with a small amount of punctate heme adheren t to the mucosa in both the body and the antrum. There was no significant bleeding noted. The pylo wesley was normal. The duodenal bulb had 1 small erosion. The duodenal sweep was normal. The endosco pe was withdrawn back into the stomach. Retroflex examination was performed. The endoscope was un- retroflexed and biopsies were taken from the antrum and distal body for histologic evaluation. The endoscope was then completely withdrawn, confirming the above findings. The patient tolerated the p rocedure well and was transferred to the recovery room in satisfactory condition. IMPRESSION: 1. Esophageal erythema without overt esophagitis. 2. Mild gastritis with punctate heme present. 3. Small erosion in duodenal bulb, otherwise normal duodenum. RECOMMENDATIONS: 1. Follow up pathology. 2. Initiate medications to heal up the inflammation noted. We will put him on a once a day PPI suc h as pantoprazole 40 mg daily. I would continue this for approximately 8 weeks to heal that up. If he has to be on long-term aspirin and nonsteroidal anti-inflammatory drugs, he can consider some ty pe of GI prophylaxis. 3. The patient does need a colonoscopy. There is an abnormality noted in the right colon on CT sca n. His iron-deficiency anemia may not be explained by the findings that I saw on the EGD. The prep is going to be very difficult for him. I would like to have him healthier prior to scheduling the colonoscopy. Given his body habitus, sleep apnea, significant desaturation with anesthesia, I feel it is most safe to complete that procedure with anesthesia in the hospital in the future. 4. Resume previous diet. 5. Return to hospital orr for ongoing care. 6. Further recommendations to follow the results of above and clinical course. Thank you for allowing me to participate in patient's healthcare. Do not hesitate to call me with a ny questions. /[id number]/MODL
[2016-08-03] MEDS: LATANOPROST 0.005% 2.5 ML OPHT DROPS EACHEYE SCH (21:05)
[2016-08-04 04:39] LABS: % IMMATURE GRANULYOCYTES 1.8 % (0.0-1.1); ABSOLUTE IMMATURE GRANULOCYTES 0.19 10^3/uL (0.00-0.10); ADD DIFF? NO; ADD MORPH? NO; ADD SCAN? NO; ATYPICAL LYMPHOCYTE FLAG 0 (0-99); FRAGMENT RBC FLAG 0 (0-99); HEMATOCRIT 27.9 % (40.0-51.0); HEMOGLOBIN 8.3 g/dL (13.7-17.5); LEFT SHIFT FLG 10 (0-99); LIPEMIA HEMOLYSIS FLAG 70 (0-99); MEAN CELL HEMOGLOBIN CONCENTR. 29.7 g/dL (32.4-36.7); MEAN CELL VOLUME 77.3 fL (81.5-99.8); PLATELET CLUMPS FLAG 10 (0-99); PLATELET COUNT 491 10^3/uL (150-400); RED BLOOD CELL COUNT 3.61 10^6/uL (4.40-6.38); RED CELL DISTRIBUTION WIDTH 15.9 % (11.5-15.2)
[2016-08-04 07:43] VITALS: RESP 20
[2016-08-04] MEDS: UMECLIDINIUM BRM IH SCH (09:21)
[2016-08-04] MEDS: VILANTEROL TR IH SCH (09:21)
[2016-08-04] MEDS: SODIUM FERRIC GLUCONAT/SUCROSE 125 MG in NS 100 ML IV SCH (09:21)
[2016-08-04] MEDS: DILTIAZEM CD 180 MG CAP PO SCH (09:22)
[2016-08-04] MEDS: BRIMONIDINE 0.1% 5 ML OPHT.BTL EACHEYE SCH (09:23)
[2016-08-04 11:17] VITALS: BP 102/54; PULSE 67; TEMP 98.5; O2SAT 94
--- NOTE | 2016-08-04 11:33 | PDIAF ---
- Diagnosis Diagnosis: anemia Code Status: Full Code - Medication Management Discharge Medications: Medications to Continue on Transfer Brimonidine 0.1% [ALPHAGAN P 0.1% (*)] 1 drops EACHEYE DAILY 07/31/16 [Last Taken 07/31/16] Diltiazem HCl [Diltiazem 24Hr Cd] 360 mg PO DAILY 07/31/16 [Last Taken 07/31/16] Fluticasone Nasal [Flonase Nasal [place]] 1 sprays NASAL BID PRN 07/31/16 [Last Taken 07/31/16] Latanoprost 0.005% [Xalatan 0.005% (*)] 1 drops EACHEYE HS 07/31/16 [Last Taken 07/30/16] Rivaroxaban [Xarelto 15mg (*)] 15 mg PO DAILY@18 07/31/16 [Last Taken 07/30/16] Umeclidinium Brm/Vilanterol Tr [Anoro Ellipta 62.5-25 Mcg INH] 1 each IH DAILY 07/31/16 [Last Taken 07/31/16] Ferrous Sulfate [Iron] 325 mg PO DAILY #30 tablet 08/04/16 [Last Taken Unknown] Pantoprazole Sodium 40 mg PO DAILY #30 tablet. 08/04/16 [Last Taken Unknown] Discharge Medications: Refer to the Discharge Home Medication list for PRN reason. - Orders Services needed: Registered Nurse, Physical Therapy, Occupational Therapy Diet Recommendation: cardiac -low fat low salt Diet Texture: Regular Texture Diet - Labs/Radiology BMP Date: 08/09/16 (holding diuretics due to LOPEZ) - Follow Up Care Current Providers and Referrals: Wesley Duffy MD [Medical Doctor] - Javon Gillespie [Primary Care Provider] - As per Instructions
--- NOTE | 2016-08-04 15:15 | GDS ---
[f rep st] DISCHARGE SUMMARY DISCHARGE DIAGNOSES: Include: 1. Severe iron deficiency anemia. 2. Early satiety. 3. Hypovolemic hyponatremia. 4. Hypokalemia secondary to over diuresis. 5. Acute kidney injury secondary to hypovolemia. 6. Atrial fibrillation. HISTORY OF PRESENT ILLNESS: This is an 81-year-old male who presented with early satiety and anemia . For details of the patient's initial presentation, please see the history and physical dated 07/04. CONSULTATIONS: Include Gastroenterology. PROCEDURES: On 08/03/2016, patient underwent abdominal CT with no ascites, but large amounts of mes enteric fat. On 08/03/2016, patient underwent EGD which showed small erosion in the duodenal bulb w ith gastritis. No concerning masses. Biopsies were obtained. HOSPITAL COURSE: 1. Iron deficiency anemia. The patient did not qualify for transfusion but was provided with 2 dos es of IV iron while inpatient. Underwent appropriate workup with Gastroenterology without a blaring source of blood loss. The patient is being initiated on PPI daily and will follow in the outpatien t setting for a repeat EGD and imaging. Patient will additionally be started on oral iron supplemen tation at discharge. 2. Early satiety. The thought was the patient may have a gastric malignancy with ascites and his s ymptoms. CT imaging and EGD did not support this. Instead, it appears he has a large amount of mes enteric fat causing his abdominal distention. 3. Acute kidney injury secondary to hypovolemia. The patient was aggressively fluid resuscitated. He was taken off his diuretic regimen at disposition and to follow with labs from the custodial to continue to monitor his kidney recovery. The patient did not have blood pressures that required treatment with multiple diuretics while inpatient. Would be cautious to re-initiate these post disp osition. 4. Severe hypokalemia. Patient had aggressive fluid repletion. Again, a potassium of 2.2 at prese ntation we suspect was secondary to his diuretic regimen. 5. Weakness. The patient is being discharged to long term facility for rehabilitation and [facility]. 6. Atrial fibrillation. The patient will be continued on his rate control medications and anticoag ulation. 7. COPD. Patient was continued on his home medications. FOLLOWUP: Include with outpatient Gastroenterology for ongoing monitoring and repeat scoping within the next 3-4 weeks. PENDING STUDIES: At the time of this dictation are none. DISPOSITION: The patient is being discharged to [facility] and nursing care . I spent greater than 30 minutes in the planning and coordination of this discharge. /[id number]/MODL
== END 2016-08-04 16:05 | DRG 641 ==
LOC: F2W 20:48
PROVIDERS: ADMIT Internal Medicine; ATTEND Internal Medicine
PROC: 0DB68ZX Excision of Stomach, Via Natural or Artificial Opening Endoscopic, Diagnostic (ICD-10-PCS; principal; 2016-08-03 10:30)
DX: E87.1 Hypo-osmolality and hyponatremia (principal); D50.9 Iron deficiency anemia, unspecified; N17.9 Acute kidney failure, unspecified; R68.81 Early satiety; E86.1 Hypovolemia; E87.6 Hypokalemia; I48.91 Unspecified atrial fibrillation; J44.9 Chronic obstructive pulmonary disease, unspecified; I10 Essential (primary) hypertension; G47.33 Obstructive sleep apnea (adult) (pediatric); R29.6 Repeated falls; K29.70 Gastritis, unspecified, without bleeding; Z79.01 Long term (current) use of anticoagulants
CPT/HCPCS: 82947-QW; 96365; 97110-GP; 97116-GP; 97162-GP; 97165-GO; 97530-GP; 97535-GO; G8978-GP-CK; G8979-GP-CI; G8987-GO-CJ; G8988-GO-CI; J0330; J1100; J2370; J2405; J2704; J2916

== ENCOUNTER 2016-12-16 15:26 | Emergency (ER) | payer OTHER, BC ==
[2016-12-16 15:43] VITALS: BP 135/80; PULSE 76; RESP 18; TEMP 98.2; O2SAT 92
[2016-12-16] MEDS ORDERED: PROPARACAINE 0.5% 15 ML OPHT DROP ONE (16:06)
[2016-12-16] MEDS ORDERED: PROPARACAINE 0.5% 15 ML OPHT DROP OP ONE (16:06)
[2016-12-16] MEDS ORDERED: FLUORESCEIN SODIUM 1 MG STRIP OP ONE ×2 (16:06)
--- NOTE | 2016-12-16 16:06 | EDPHY ---
H & P Time Seen by Provider: 12/16/16 16:05 HPI/ROS: CHIEF COMPLAINT: redness right lateral eye HISTORY OF PRESENT ILLNESS: 81-year-old male in daily Xarelto states last night he had a heavy sneeze and this morning noticed redness to the right lateral aspect of his eye. No visual acuity changes. No photophobia. No exposure to high speed projectiles. No itching. No discharge. PHYSICAL EXAM (Prior to examination, patient consented to physical exam, hands were washed and my usual and customary physical exam procedures followed) 1) GENERAL: Well-developed, well-nourished, alert and oriented. Appears to be in no acute distress. 2) HEAD: Normocephalic 3) HEENT: sclera anicteric . Subconjunctival hemorrhage right lateral sclera. No hyphema. No discharge. No pain with extraocular movements. No periorbital edema, erythema, crepitus, no proptosis. Smoking Status: Former smoker Constitutional: Initial Vital Signs Temperature (C) 36.8 C 12/16/16 15:40 Heart Rate 76 12/16/16 15:40 Respiratory Rate 18 12/16/16 15:40 Blood Pressure 135/80 H 12/16/16 15:40 O2 Sat (%) 92 12/16/16 15:40 O2 Delivery Mode Nasal Cannula O2 (L/minute) 2 Allergies/Adverse Reactions: No Known Allergies Allergy (Verified 12/16/16 15:38) Home Medications: Medication Instructions Recorded Brimonidine 0.1% [ALPHAGAN P 0.1% 1 drops EACHEYE DAILY 07/31/16 (*)] Diltiazem HCl [Diltiazem 24Hr Cd] 360 mg PO DAILY 07/31/16 Fluticasone Nasal [Flonase Nasal 1 sprays NASAL BID PRN 07/31/16 [place]] Latanoprost 0.005% [Xalatan 0.005% 1 drops EACHEYE HS 07/31/16 (*)] Rivaroxaban [Xarelto 15mg (*)] 15 mg PO DAILY@18 07/31/16 Umeclidinium Brm/Vilanterol Tr 1 each IH DAILY 07/31/16 [Anoro Ellipta 62.5-25 Mcg INH] Ferrous Sulfate [Iron] 325 mg PO DAILY #30 tablet 08/04/16 Pantoprazole Sodium 40 mg PO DAILY #30 tablet. 08/04/16 Torsemide [Demadex] 20 mg PO DAILY10 12/16/16 MDM/Departure - [facility] ED Course/Re-evaluation: Patient has evidence of right subconjunctival hemorrhage after a sneeze on daily Xarelto. No hyphema. Plan will be discharge, given usual customary ophthalmological precautions instructions. He feels comfortable with this discharge plan. Care of patient under supervision of secondary supervising physician Dr Mary . - Depart Disposition: Home, Routine, Self-Care Clinical Impression: Subconjunctival hemorrhage of right eye Condition: Good Instructions: Subconjunctival Hemorrhage (ED) Additional Instructions: Return to the ER if you have difficulty seeing, change in vision or any other symptoms that concern you Referrals: Javon Gillespie [Primary Care Provider] - 1-2 days without fail
== END 2016-12-16 16:30 | disposition home or self-care (01) ==
DX: H11.31 Conjunctival hemorrhage, right eye (principal); Z87.891 Personal history of nicotine dependence

== ENCOUNTER → 2017-08-07 | Outpatient (CLI) | payer OTHER, BC | LOC: BHFA 16:15 | PROVIDERS: ATTEND Internal Medicine Cardiovascular Disease | DX: R06.02 Shortness of breath (principal) ==

== ENCOUNTER → 2017-09-12 | Outpatient (CLI) | payer OTHER, BC | LOC: FIMAGING 13:19 | PROVIDERS: ATTEND Family Medicine | DX: I51.7 Cardiomegaly (principal); I87.8 Other specified disorders of veins; J98.11 Atelectasis; N18.3 Chronic kidney disease, stage 3 (moderate) ==

== ENCOUNTER → 2017-10-30 | Outpatient (CLI) | payer OTHER, BC | LOC: BHFA 13:45 | PROVIDERS: ATTEND Nurse Practitioner Family | DX: I48.0 Paroxysmal atrial fibrillation (principal); R06.02 Shortness of breath; I50.33 Acute on chronic diastolic (congestive) heart failure; I44.1 Atrioventricular block, second degree; E66.01 Morbid (severe) obesity due to excess calories; J44.9 Chronic obstructive pulmonary disease, unspecified ==

== ENCOUNTER → 2017-10-31 | Outpatient (CLI) | payer OTHER, BC | LOC: BHFA 10:30 | PROVIDERS: ATTEND Internal Medicine Cardiovascular Disease | DX: I48.0 Paroxysmal atrial fibrillation (principal) ==

== ENCOUNTER 2017-11-13 17:41 | Emergency (ER) | payer OTHER, BC ==
[2017-11-13] MEDS ORDERED: SILVER NITRATE APPLICATOR 1 APPL TP ONE ×2 (19:55→21:24)
[2017-11-13] MEDS ORDERED: COCAINE HCL 4% 4 ML BTL TP ONE ×2 (19:55→21:24)
[2017-11-13] MEDS ORDERED: OXYMETAZOLINE 30 ML NASAL SPRAY ONE (19:56)
--- NOTE | 2017-11-13 20:13 | EDPHY ---
H & P Stated Complaint: nose bleed on and off for a few hours Time Seen by Provider: 11/13/17 19:51 HPI/ROS: CHIEF COMPLAINT: Epistaxis HISTORY OF PRESENT ILLNESS: Patient is an 82-year-old man who comes to the emergency department complaining epistaxis from his right naris. It began after he picked his nose. He has a history of atrial fibrillation and is on Xarelto. It is been bleeding off and on the last 3 hr. No fevers. Does not feel lightheaded or dizzy. He currently has a packed with Kleenex and it has stopped. Severity: Moderate Modifying factors: None REVIEW OF SYSTEMS: Constitutional: denies: chills, fever, recent illness, recent injury EENTM: See HPI Respiratory: denies: cough, shortness of breath Cardiac: denies: chest pain, irregular heart rate, lightheadedness, palpitations Gastrointestinal/Abdominal: denies: abdominal pain, diarrhea, nausea, vomiting, blood streaked stools Genitourinary: denies: dysuria, frequency, hematuria, pain Musculoskeletal: denies: joint pain, muscle pain Skin: denies: lesions, rash, jaundice, bruising Neurological: denies: headache, numbness, paresthesia, tingling, dizziness, weakness Hematologic/Lymphatic: denies: blood clots, easy bleeding, easy bruising Immunologic/allergic: denies: HIV/AIDS, transplant 10 systems reviewed and negative except as noted EXAM: GENERAL: Well-appearing, well-nourished and in no acute distress. HEAD: Atraumatic, normocephalic. EYES: Pupils equal round and reactive to light, extraocular movements intact, sclera anicteric, conjunctiva are normal. ENT: TMs normal, right nares with anterior septal bleeding., oropharynx clear without exudates. Moist mucous membranes. NECK: Normal range of motion, supple without lymphadenopathy or JVD. LUNGS: Breath sounds clear to auscultation bilaterally and equal. No wheezes rales or rhonchi. HEART: Regular rate and rhythm without murmurs, rubs or gallops. ABDOMEN: Soft, nontender, normoactive bowel sounds. No guarding, no rebound. No masses appreciated. BACK: No CVA tenderness, no spinal tenderness, step-offs or deformities EXTREMITIES: Normal range of motion, no pitting or edema. No clubbing or cyanosis. NEUROLOGICAL: Cranial nerves II through XII grossly intact. Normal speech, normal gait. 5/5 strength, normal movement in all extremities, normal sensation , normal reflexes PSYCH: Normal mood, normal affect. SKIN: Warm, dry, normal turgor, no visible rashes or lesions. Source: Patient, Family Exam Limitations: No limitations - Personal History Tetanus Vaccine Date: up to date - Medical/Surgical History Hx Asthma: No Hx Chronic Respiratory Disease: Yes Hx Diabetes: No Hx Cardiac Disease: Yes Hx Renal Disease: No Hx Cirrhosis: No Hx Alcoholism: No Hx HIV/AIDS: No Hx Splenectomy or Spleen Trauma: No Other PMH: HTN, glaucoma -cornea replacement in both eyes, sleep apnea- CPAP, CHF, newly diagnosed afib, anemia, copd,falls, anemia, hx gi bleed, hyponatremia , hypokalemia, - Family History Significant Family History: No pertinent family hx - Social History Smoking Status: Former smoker Alcohol Use: Sober Drug Use: None Constitutional: Initial Vital Signs Temperature (C) 36.7 C 11/13/17 17:52 Heart Rate 73 11/13/17 17:52 Respiratory Rate 18 11/13/17 17:52 Blood Pressure 113/58 L 11/13/17 17:52 O2 Sat (%) 89 L 11/13/17 17:52 O2 Delivery Mode Nasal Cannula O2 (L/minute) 2 Allergies/Adverse Reactions: No Known Allergies Allergy (Verified 11/13/17 17:51) Home Medications: Medication Instructions Recorded Fluticasone Nasal [Flonase Nasal 1 sprays NASAL BID PRN 07/31/16 [place]] Latanoprost 0.005% [Xalatan 0.005% 1 drops EACHEYE HS 07/31/16 (*)] Umeclidinium Brm/Vilanterol Tr 1 each IH DAILY 07/31/16 [Anoro Ellipta 62.5-25 Mcg INH] Torsemide [Demadex] 80 mg PO DAILY@1500 12/16/16 Brimonidine 0.2% [Alphagan 0.2%] 1 drops EACHEYE DAILY 10/03/17 C/E/Zn/Cu/OM3/DHA/EPA/LUT/ZEAX 1 each PO BID 10/03/17 [Preservision Areds 2 Softgel] Potassium Chloride [Klor-Con 10] 10 meq PO DAILY 10/03/17 Spironolactone [Aldactone] 50 mg PO DAILY 10/03/17 Torsemide [Demadex] 100 mg PO DAILY 10/03/17 Acetaminophen [Tylenol 325mg (*)] 650 mg PO Q4 PRN tab 10/13/17 Benzonatate [Tessalon Pearles] 200 mg PO TID PRN cap 10/13/17 Diltiazem Xr [Dilacor Xr] 240 mg PO DAILY cap 10/13/17 Lidocaine 2% Viscous 5 ml PO Q4 PRN #100 ml 10/13/17 Pantoprazole Sodium [Protonix 40mg 40 mg PO DAILY tab 10/13/17 (*)] Xarelto 11/13/17 Medical Decision Making ED Course/Re-evaluation: The patient's nose was instilled with Afrin after clearing. It was then packed with a cotton ball soaked in Afrin and cocaine. Anesthesia was obtained and his nose was then cauterized on the septal aspect. This was able to control the bleeding. We observed him for an hour and the bleeding did not start again. He is eager to be discharged. We discussed indications for returning. Differential Diagnosis: Partial list of the Differential diagnosis considered include but were not limited to; anterior epistaxis, anticoagulation, trauma and although unlikely based on the history and physical exam, I also considered infection, posterior bleed. I discussed these differential diagnoses and the plan with the patient as well as the usual and expected course. The patient understands that the diagnosis is provisional and that in medicine we are not always correct and that further workup is often warranted. Usual and customary warnings were given. All of the patient's questions were answered. The patient was instructed to return to the emergency department should the symptoms at all worsen or return, otherwise to followup with the physician as we discussed. - Data Points Medications Given: Discontinued Medications Cocaine HCl (Cocaine Hcl) 1 ceci TP EDNOW ONE Stop: 11/13/17 21:25 Last Admin: 11/13/17 19:30 Dose: 1 ceci Oxymetazoline HCl (Afrin Nasal [place]) 2 sprays EACHNARE EDNOW ONE Stop: 11/13/17 21:25 Last Admin: 11/13/17 19:30 Dose: 2 sprays Silver Nitrate/Potassium Nitrate (Silver Nitrate Applicator) 1 each TP EDNOW ONE Stop: 11/13/17 21:25 Last Admin: 11/13/17 19:30 Dose: 1 each Tranexamic Acid (Cyklokapron) 500 mg TP EDNOW ONE Stop: 11/13/17 20:35 Last Admin: 11/13/17 21:37 Dose: Not Given Departure - Departure Disposition: Home, Routine, Self-Care Clinical Impression: Acute anterior epistaxis Condition: Fair Instructions: Nosebleed (ED) Referrals: Javon Gillespie [Primary Care Provider] - As per Instructions
[2017-11-13] MEDS ORDERED: TRANEXAMIC ACID 1,000 MG/10 ML VIAL TP ONE (20:34)
[2017-11-13] MEDS ORDERED: OXYMETAZOLINE 30 ML NASAL SPRAY EACHNARE ONE (21:24)
[2017-11-13 21:42] VITALS: BP 135/77
== END 2017-11-13 21:40 | disposition home or self-care (01) ==
PROC: 3E09XTZ Introduction of Destructive Agent into Nose, External Approach (ICD-10-PCS; principal; 2017-11-13)
DX: R04.0 Epistaxis (principal); I10 Essential (primary) hypertension; I48.91 Unspecified atrial fibrillation; D64.9 Anemia, unspecified

== ENCOUNTER 2018-03-24 17:45 | Emergency (ER) | payer OTHER, BC ==
--- NOTE | 2018-03-24 18:10 | EDPHY ---
HPI/HX/ROS/PE/MDM Narrative: CHIEF COMPLAINT: LLE pain and swelling HISTORY OF PRESENT ILLNESS: This patient is an anticoagulated (Xarelto) 83 year old male with past medical history including hypertension, CHF, atrial fibrillation, COPD. He arrives today with his at the request of his primary care provider for evaluation of pain and swelling in his left lower extremity and DVT rule-out. Hs symptoms have been worsening over 10 days. He endorses tenderness in the leg. No recent trauma. He is unsure if he has had a blood clot in the past. Currently, he feels short of breath, but not meaningfully more than usual. No fever, chills, chest pain, increased O2 requirement, palpitations, vomiting, diarrhea, urinary complaints, headache, or lightheadedness. REVIEW OF SYSTEMS: A comprehensive 10 system review of systems is otherwise negative aside from elements mentioned in the history of present illness and medical decision making. PAST MEDICAL HISTORY: Hypertension. CHF. Atrial fibrillation. Anemia. COPD. SCOTTY (CPAP). History of hyponatremia/hypokalemia. History of GI bleed. History of glaucoma. Bilateral cornea replacements. History of multiple falls. SOCIAL HISTORY: . at bedside. VITAL SIGNS: Reviewed by me. On O2 GENERAL: Overweight gentleman, [place], moving slowly but in no resp distress. Complains only of swelling in left lower leg. EXTREMITIES: Left lower extremity: Significant swelling in foot and calf. Calf compartment tender but soft. Erythema and warmth distally over the anterior [place] and foot. 1+ pitting edema. Significant edema across dorsum of foot. No pain or tenderness above the knee. No swelling or tenderness behind the knee. Foot warm and dry. DP/PT pulses intact. SKIN: Warm and dry, no rash. PSYCHIATRIC: Normal mentation, no agitation. Portions of this note were transcribed by a certified medical records coder. I personally performed a history, physical exam, medical decision making, and confirmed accuracy of information the transcribed note. ED Course: 83 y/o male presents with erythematous swollen left lower extremity. Plan for US LLE to r/o DVT. Patient's symptoms are consisted with possible cellulitis vs. DVT. 18:[address] Pompa, radiologist. US LLE is negative for DVT, significant soft tissue edema present. Reassessed patient. Discussed imaging results. Plan to discharge home in good condition with prescription for Keflex. Follow up and return precautions discussed. He will follow up with his primary care provider in the next several days. He is comfortable with this plan. MDM: Diff dx considered including but not limited to superficial thrombophlebitis, DVT, abscess, cellulitis, ruptured bakers cyst, CHF, lymphedema, occult trauma. - Data Points Imaging Results: Impression: No deep venous thrombosis in the left lower extremity. Findings discussed with Marimar Thibodeaux MD at 18:56 hour, 03/24/2018. Dictated By: Honorio Pompa MD Imaging: Discussed imaging studies w/ yardage caller Radiologist Medications Given: Discontinued Medications Cephalexin (Keflex 500 Mg Prepack#4) 1 btl TAKEHOME EDNOW ONE PRN Reason: Protocol Stop: 03/24/18 19:01 Last Admin: 03/24/18 19:26 Dose: 1 btl Cephalexin HCl (Keflex) 500 mg PO EDNOW ONE PRN Reason: Protocol Stop: 03/24/18 19:00 Last Admin: 03/24/18 19:25 Dose: 500 mg General Time Seen by Provider: 03/24/18 17:57 Initial Vital Signs: Initial Vital Signs Temperature (C) 36.7 C 03/24/18 17:46 Heart Rate 86 03/24/18 17:46 Respiratory Rate 20 03/24/18 17:46 Blood Pressure 124/80 H 03/24/18 17:46 O2 Sat (%) 91 L 03/24/18 17:46 O2 Delivery Mode Nasal Cannula O2 (L/minute) 2 Allergies/Adverse Reactions: No Known Allergies Allergy (Verified 03/24/18 17:45) Home Medications: Medication Instructions Recorded Fluticasone Nasal [Flonase Nasal 1 sprays NASAL BID PRN 07/31/16 [place]] Latanoprost 0.005% [Xalatan 0.005% 1 drops EACHEYE HS 07/31/16 (*)] Umeclidinium Brm/Vilanterol Tr 1 each IH DAILY 07/31/16 [Anoro Ellipta 62.5-25 Mcg INH] Torsemide [Demadex] 80 mg PO DAILY@1500 12/16/16 Brimonidine 0.2% [Alphagan 0.2%] 1 drops EACHEYE DAILY 10/03/17 C/E/Zn/Cu/OM3/DHA/EPA/LUT/ZEAX 1 each PO BID 10/03/17 [Preservision Areds 2 Softgel] Potassium Chloride [Klor-Con 10] 10 meq PO DAILY 10/03/17 Spironolactone [Aldactone] 50 mg PO DAILY 10/03/17 Torsemide [Demadex] 100 mg PO DAILY 10/03/17 Acetaminophen [Tylenol 325mg (*)] 650 mg PO Q4 PRN tab 10/13/17 Benzonatate [Tessalon Pearles] 200 mg PO TID PRN cap 10/13/17 Diltiazem Xr [Dilacor Xr] 240 mg PO DAILY cap 10/13/17 Lidocaine 2% Viscous 5 ml PO Q4 PRN #100 ml 10/13/17 Pantoprazole Sodium [Protonix 40mg 40 mg PO DAILY tab 10/13/17 (*)] Xarelto 11/13/17 Cephalexin [Keflex (RX)] 500 mg PO QID 7 Days cap 03/24/18 Departure - Departure Disposition: Home, Routine, Self-Care Clinical Impression: Cellulitis of left lower extremity Condition: Good Instructions: Cephalexin (By mouth), Cellulitis (ED) Additional Instructions: There was no evidence of DVT on your ultrasound today. Take Keflex as prescribed. It is important that you finish your entire course of antibiotics even if you are feeling better. Follow up with your primary care provider in 2-3 days. Seek care urgently or return to the emergency department for fever, increasing redness or swelling, red streaking up or down your leg, or further concerns. Return to the emergency department for fever, chest pain, shortness of breath, vomiting, or other worsening of condition. Referrals: Ru Tello MD [Primary Care Provider] - As per Instructions Prescriptions: Cephalexin [Keflex (RX)] 500 mg PO QID 7 Days cap Report Scribed for: Marimar Thibodeaux Report Scribed by: Wendy Marquez Date of Report: 03/24/18 Time of Report: 18:59
[2018-03-24] MEDS ORDERED: CEPHALEXIN 500 MG CAP PO ONE (18:59)
[2018-03-24] MEDS ORDERED: CEPHALEXIN 500MG PREPACK#4 BTL TAKEHOME ONE (19:00)
[2018-03-24 19:25] VITALS: BP 118/76
== END 2018-03-24 19:39 | disposition home or self-care (01) ==
DX: L03.116 Cellulitis of left lower limb (principal); J44.9 Chronic obstructive pulmonary disease, unspecified; I11.0 Hypertensive heart disease with heart failure; I50.9 Heart failure, unspecified; I48.91 Unspecified atrial fibrillation

== ENCOUNTER → 2018-06-04 | Outpatient (CLI) | payer OTHER, BC | LOC: FCPNEURO 07:32 | PROVIDERS: ATTEND Student in an Organized Health Care Education/Training Program | DX: G47.33 Obstructive sleep apnea (adult) (pediatric) (principal) ==

== ENCOUNTER 2018-06-21 11:01 | Inpatient (IN) | payer OTHER, BC ==
[2018-06-21 11:41] LABS: PLATELET COUNT 274 10^3/uL (150-400)
--- NOTE | 2018-06-21 11:43 | EDPHY ---
H & P Stated Complaint: decreased responsiveness Time Seen by Provider: 06/21/18 11:12 HPI/ROS: CHIEF COMPLAINT: Aphasia HISTORY OF PRESENT ILLNESS: 83-year-old male with CHF atrial fibrillation on Xarelto presents with aphasia. His 1st noted difficulty responding at 9: 00 a.m. She asked him a question and he looked directly at her, but was unable to speak. This lasted approximately 30 min and then she after neighbors to help get him into the car. He was able to walk with a steady gait to the car. On the way to the ED, he started talking again. His speech is now back to normal, according to his . He denies headache or recent head injury. REVIEW OF SYSTEMS: complete 10 point ROS reviewed and is negative except for the noted elements in the HPI Source: Family - Personal History Current Tetanus/Diphtheria Vaccine: Yes Current Tetanus Diphtheria and Acellular Pertussis (TDAP): Yes Tetanus Vaccine Date: up to date - Medical/Surgical History Hx Asthma: No Hx Chronic Respiratory Disease: Yes Hx Diabetes: No Hx Cardiac Disease: Yes Hx Renal Disease: No Hx Cirrhosis: No Hx Alcoholism: No Hx HIV/AIDS: No Hx Splenectomy or Spleen Trauma: No Other PMH: HTN, glaucoma -cornea replacement in both eyes, sleep apnea- CPAP, CHF, afib, anemia, copd,falls, anemia, hx gi bleed, hyponatremia, hypokalemia, - Social History Smoking Status: Former smoker Alcohol Use: Sober Drug Use: None Additional Social History: - Physical Exam Exam: General Appearance: Alert, speech is clear, answers questions appropriately Eyes: Pupils equal and round, no conjunctival pallor ENT, Mouth: Mucous membranes moist Neck: Normal inspection Respiratory: Lungs are clear to auscultation Cardiovascular: Regular rate and rhythm Gastrointestinal: Abdomen is soft and nontender Neurological: Alert, to person and place, cranial nerves II through XII intact , motor 5/5, sensory grossly intact Skin: Warm and dry Extremities: pedal edema Psychiatric: Mood and affect normal Constitutional: Initial Vital Signs Temperature (C) 37.0 C 06/21/18 11:05 Heart Rate 69 06/21/18 11:05 Respiratory Rate 20 06/21/18 11:05 Blood Pressure 124/73 H 06/21/18 11:05 O2 Sat (%) 91 L 06/21/18 11:05 O2 Delivery Mode Nasal Cannula O2 (L/minute) 2 Allergies/Adverse Reactions: No Known Allergies Allergy (Verified 03/24/18 17:45) Home Medications: Medication Instructions Recorded Fluticasone Nasal [Flonase Nasal 1 sprays EACHNARE DAILY 07/31/16 [place]] Latanoprost 0.005% [Xalatan 0.005% 1 drops EACHEYE HS 07/31/16 (*)] Umeclidinium Brm/Vilanterol Tr 1 each IH DAILY 07/31/16 [Anoro Ellipta 62.5-25 Mcg INH] Torsemide [Demadex] 60 mg PO DAILY@1500 12/16/16 Brimonidine 0.2% [Alphagan 0.2%] 1 drops EACHEYE BID 10/03/17 C/E/Zn/Cu/OM3/DHA/EPA/LUT/ZEAX 1 each PO BID 10/03/17 [Preservision Areds 2 Softgel] Potassium Chloride [Klor-Con 10] 10 meq PO DAILY@12 10/03/17 Spironolactone [Aldactone] 50 mg PO DAILY 10/03/17 Torsemide [Demadex] 80 mg PO DAILY 10/03/17 Lidocaine 2% Viscous 5 ml PO Q4 PRN #100 ml 10/13/17 Rivaroxaban [Xarelto 15mg (*)] 15 mg PO HS 11/13/17 Acetaminophen [Tylenol ES 500 mg 1,000 mg PO Q8 PRN MDD 3000mg 06/21/18 (*)] [place] Saline Nasal Gel 1 ceci EACHNARE PRN PRN 06/21/18 Benzonatate [Tessalon Pearles] 200 mg PO HS PRN 06/21/18 Diltiazem Cd [Cardizem ER 120 MG 120 mg PO DAILY 06/21/18 (*)] Ferrous Sulfate [Ferrous Sulf 325 325 mg PO HS 06/21/18 MG (*)] Folic Acid [Folic Acid 1 MG (*)] 1 mg PO DAILY 06/21/18 [place] Cough Drops 3.2mg 1 - 2 lozenge PO DAILY PRN 06/21/18 Thiamine HCl [Vitamin B-1 100mg 100 mg PO DAILY@12 06/21/18 (OTC)] Medical Decision Making - Diagnostics Imaging Results: Imaging Impressions Head CT 06/21/18 11:27 Impression: Stable negative noncontrast CT of the brain. Results called to Dr. Anuja Balderas at 12:30 PM at the time of the interpretation. Chest X-Ray 06/21/18 12:18 Impression: 1. Marked cardiomegaly. 2. left costophrenic angle blunting compatible with pleural effusion/fibrosis.. Abdomen Ultrasound 06/21/18 13:41 Impression: 1. No ascites. 2. Gaseous bowel pattern resulting in suboptimal visualization of portions of the liver, pancreas, and mid and distal abdominal aorta. 3. Cholelithiasis. No sonographic features to suggest acute cholecystitis. No biliary dilation or evidence of common bile duct stone. Imaging: Discussed imaging studies w/ order desk caller Radiologist ED Course/Re-evaluation: This patient presents after an episode of expressive aphasia, now resolved. Neurologic exam is normal and NIH stroke score is 0. On Xarelto,not a tpa candidate. CT head NAD/unchanged from previous. Results d/w pt and . Pt' s neuro exam unchanged. Will admit pt to the hospitalist service for further eval of TIA. Leukocytosis noted, pt afebrile and no recent illness. CXR unremarkable and UA pending. Differential Diagnosis: Altered mental status including but not limited to hypoglycemia, infectious process, electrolyte abnormality, head injury, CVA, and intoxicants. - Data Points Laboratory Results: Laboratory Results 06/21/18 11:28 06/21/18 11:28 06/21/18 06/21/18 06/21/18 11:37 11:28 11:28 WBC RBC Hgb Hct MCV MCH MCHC RDW Plt Count MPV Neut % (Auto) Lymph % (Auto) [place] % (Auto) Eos % (Auto) Baso % (Auto) Nucleat RBC Rel Count Absolute Neuts (auto) Absolute Lymphs (auto) Absolute Monos (auto) Absolute Eos (auto) Absolute Basos (auto) Absolute Nucleated RBC Immature Gran % Immature Gran # PT 19.5 SEC H SEC (12.0-15.0) INR 1.74 H (0.83-1.16) Sodium Potassium Chloride Carbon Dioxide Anion Gap BUN Creatinine Estimated GFR Glucose Calcium Total Bilirubin 0.7 mg/dL mg/dL (0.1-1.4) Conjugated Bilirubin 0.3 mg/dL mg/dL (0.0-0.5) Unconjugated Bilirubin 0.4 mg/dL mg/dL (0.0-1.1) AST 27 IU/L IU/L (17-59) ALT 17 IU/L L IU/L (21-72) Alkaline Phosphatase 93 IU/L IU/L (38-126) POC Troponin I 0.02 ng/mL ng/mL (0.00-0.08) NT-Pro-B Natriuret Pep 276 pg/mL pg/mL (0-450) Total Protein 6.9 g/dL g/dL (6.3-8.2) Albumin 3.9 g/dL g/dL (3.5-5.0) 06/21/18 06/21/18 11:28 11:28 WBC 13.87 10^3/uL H 10^3/uL (3.80-9.50) RBC 5.03 10^6/uL 10^6/uL (4.40-6.38) Hgb 16.1 g/dL g/dL (13.7-17.5) Hct 49.9 % % (40.0-51.0) MCV 99.2 fL fL (81.5-99.8) MCH 32.0 pg pg (27.9-34.1) MCHC 32.3 g/dL L g/dL (32.4-36.7) RDW 14.6 % % (11.5-15.2) Plt Count 274 10^3/uL 10^3/uL (150-400) MPV 9.6 fL fL (8.7-11.7) Neut % (Auto) 82.4 % H % (39.3-74.2) Lymph % (Auto) 7.2 % L % (15.0-45.0) [place] % (Auto) 8.4 % % (4.5-13.0) Eos % (Auto) 0.1 % L % (0.6-7.6) Baso % (Auto) 0.5 % % (0.3-1.7) Nucleat RBC Rel Count 0.0 % % (0.0-0.2) Absolute Neuts (auto) 11.42 10^3/uL H 10^3/uL (1.70-6.50) Absolute Lymphs (auto) 1.00 10^3/uL 10^3/uL (1.00-3.00) Absolute Monos (auto) 1.17 10^3/uL H 10^3/uL (0.30-0.80) Absolute Eos (auto) 0.01 10^3/uL L 10^3/uL (0.03-0.40) Absolute Basos (auto) 0.07 10^3/uL 10^3/uL (0.02-0.10) Absolute Nucleated RBC 0.00 10^3/uL 10^3/uL (0-0.01) Immature Gran % 1.4 % H % (0.0-1.1) Immature Gran # 0.20 10^3/uL H 10^3/uL (0.00-0.10) PT INR Sodium 135 mEq/L mEq/L (135-145) Potassium 4.6 mEq/L mEq/L (3.5-5.2) Chloride 93 mEq/L L mEq/L (97-110) Carbon Dioxide 31 mEq/l mEq/l (22-31) Anion Gap 11 mEq/L mEq/L (6-14) BUN 28 mg/dL H mg/dL (7-23) Creatinine 1.1 mg/dL mg/dL (0.7-1.3) Estimated GFR > 60 Glucose 211 mg/dL H mg/dL (70-100) Calcium 9.2 mg/dL mg/dL (8.5-10.4) Total Bilirubin Conjugated Bilirubin Unconjugated Bilirubin AST ALT Alkaline Phosphatase POC Troponin I NT-Pro-B Natriuret Pep Total Protein Albumin Medications Given: Furosemide (Lasix Injection) 80 mg IVP Q6HRS BETHANY Stop: 12/18/18 14:29 Last Admin: 06/21/18 15:50 Dose: 80 mg Point of Care Test Results: Chemistry 06/21/18 11:37 POC Troponin I 0.02 ng/mL ng/mL (0.00-0.08) Departure - Departure Disposition: [facility] Clinical Impression: Transient cerebral ischemia Qualifiers: Transient cerebral ischemia type: unspecified Qualified Code(s): G45.9 - Transient cerebral ischemic attack, unspecified Condition: Fair
--- NOTE | 2018-06-21 12:42 | CPEKG ---
Test Reason : OPEN Blood Pressure : / mmHG Vent. Rate : 063 BPM Atrial Rate : 234 BPM P-R Int : 074 ms QRS Dur : 149 ms QT Int : 420 ms P-R-T Axes : 000 061 -15 degrees QTc Int : 430 ms Atrial flutter Ventricular premature complex Right bundle branch block Confirmed by Anuja Balderas ([id number]) on 06/21/2018 12:41:40 PM Referred By: Anuja Balderas Confirmed By:Anuja Balderas
--- NOTE | 2018-06-21 13:09 | PDGENHP ---
History and Physical History and Physical: CC: Transient poor responsiveness and decreased speaking HISTORY: The patient has been marked memory loss and is unable to provide me any history, has no recollection of anything that happened this morning. All of the acute history is coming from his who also has memory deficit and is having trouble piecing together the events of this morning. She got up before him and was down stairs when she heard him getting out of bed and walking around up stairs. She went up to check on him and he seemed overall to be doing okay though she says she seems slower to respond than usual. Subsequently he came down stairs and she found him even slower to respond and he said very little and did not appear to understand something she said to him. For these reasons she brought him here to the hospital ER. She says that he started being more conversant on the way here. When I ask her if he seemed at all bothered by his situation this morning she does not think he did. He did not seem anxious or troubled in any way, but "just slower in responsing and not understanding me". She does admit that over the past 3 or 4 months he has become slower mentally overall and less active. Today was more severe than in the past however. The patient does not recall any of this but he does not recall much at all from home. He can tell me his date and address and other chronic issues but can't really tell me anything about what it has been happening recently. In the ER the patient's story lead to consideration of TIA and he has had a CT scan of the head which is unrevealing. In addition to the above the patient's tells me that he gained approximately 20 lb by daily weights at home over the last few weeks despite increases in his torsemide doses which are as much recently is 180 mg per day total at the direction of his outpatient physicians. The patient himself recalls nothing of this as well. Neither of them is aware of him having had any chest pain or palpitations, cough or fevers. ROS: A comprehensive 10 system review revealed no other significant findings PAST MEDICAL HISTORY: Dementia AFib on Xarelto CHF with preserved ejection fraction Hypertension Cornea transplants Chronic hypoxemic respiratory failure Obstructive sleep apnea on CPAP COPD Iron deficiency Anemia/colon polyps/gastritis Gait instability with falls GI bleed Hyponatremia Morbid obesity Type 2 diabetes mellitus FAMILY MEDICAL HISTORY: No concerning or relative history per the patient and SOCIAL HISTORY: lives with Former pipe smoker Alcohol 2-4 drinks daily MEDICATIONS: The patients list has been reconciled by our clinical pharmacist in the EMR. I have reviewed the list and ordered appropriate medicines. 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, no focal weakness Skin: warm, dry, generalized rosemary complexion, no rash HEENT: normal Neck: Unable to assess for JVD or masses due to severe obesity Resps: relaxed Lungs: Very diminished Heart: regular, no murmur Abdomen: soft, quite distended and tense with what seems like ascites, caput medusa say venous pattern present, no tenderness toes; there is also edema of the skin of the abdomen Extremities: Massive edema from the thighs down to No Bleeding or bruising IV site: looks normal LABORATORY DATA: Mildly elevated BUN at 28, otherwise unremarkable metabolic panel Glucose 211 WBC [id number] with neutrophil predominance (has chronically elevated neutrophils) RADIOLOGY STUDIES: I reviewed images from CT scan of head done in the ER today which shows no bleeding stroke mass or other acute abnormality ECHOCARDIOGRAM: I reviewed his most recent echocardiogram here from October 2017, EF 62% with no wall motion abnormalities, normal RV function, dilated left atrium, mild-to- moderate aortic stenosis and at that time normal pulmonary artery pressures 12 LEAD EKG: I reviewed 12 lead tracing from the ER today showing atrial flutter with 124 conduction good ventricular rate control and right bundle branch block ASSESSMENT: * Acute metabolic encephalopathy is likely the cause of his presenting symptom, doubt TIA but could not entirely rule out acute TIA with expressive aphasia ( underlying dementia is clearly present, unclear if this is been formally previously diagnosed or not) * Acute congestive heart failure with dyspnea and pulmonary edema, severe anasarca despite increased doses of torsemide at home; previously normal diastolic function and only min gkzx-nl-tibgbtfz aortic stenosis other valves okay, normal pulmonary pressures as of 10/2017 * Question of liver disease with exam suggesting ascites and caput medusa venous pattern on belly * Chronic AFib currently in rate controlled atrial flutter, on chronic anticoagulation * Diabetes mellitus type 2 with current hyperglycemia * History of COPD, sleep apnea, and hypoxemic respiratory failure * Morbid obesity * Gait instability with history of falls, high fall risk here PLANS: * Inpatient admission to PCU * Place on neurology unit on TIA protocols * IV diuresis * Abdominal ultrasound to evaluate for ascites and to assess liver * Liver panel, may need to check hepatitis labs * Echocardiogram to assess for stability of valves, pulmonary pressures, and LV function/RV function * Follow electrolytes closely here * Avoid medicines with RETAIL FIELD SUPERVISOR active affects as able * DVT prophylaxis per his usual anticoagulation * Cardiology consultation I have reviewed the patient's case in detail with Dr. Anuja Balderas I have reviewed the patient's past medical records as part of this assessment, including previous hospital admission records
[2018-06-21 14:05] LABS: INR 1.74 (0.83-1.16); PROTIME(PATIENT) 19.5 SEC (12.0-15.0)
[2018-06-21] MEDS ORDERED: PROTOCOL POTASSIUM 1 DOSE MISC PRN (14:25)
[2018-06-21] MEDS ORDERED: PROTOCOL MAGNESIUM 1 DOSE IV PRN (14:25)
[2018-06-21] MEDS ORDERED: ONDANSETRON 4 MG/2 ML VIAL IVP PRN (14:28)
[2018-06-21] MEDS: FUROSEMIDE 100 MG/10 ML VIAL IVP SCH ×2 (15:50→20:07)
[2018-06-21] MEDS ORDERED: BENZONATATE 100 MG CAP PO PRN (17:50)
--- NOTE | 2018-06-21 17:54 | PDMN ---
Medical Necessity Medical necessity: Pt meets IP criteria as of 06/21/2018 per and KEELY M-190 ( Heart Failure); est los > 2 mn for ongoing tx and management of acute CHF with dyspnea, pulmonary edema, and severe anasarca despite recent dosage increase of torsemide. Additionally, acute metabolic encephalopathy and possible liver disease with ascites and caput medusa; requiring IV diuresis, cardiac monitoring , serial labs, serial neuro exams, and further workup. Hx afib on AC, CHF, HTN, COPD, SCOTTY, iron deficiency anemia, GI, gait instability, DM II, and morbid obesity.
[2018-06-21] MEDS ORDERED: LIDOCAINE 2% VISCOUS 15 ML UDCUP PO PRN (18:15)
[2018-06-21] MEDS: BRIMONIDINE 0.2% 5 ML OPHT.BTL EACHEYE SCH (20:04)
[2018-06-21] MEDS: PRESERVISION AREDS2 FORMULA EYE VIT 1 EACH PO SCH (20:05)
[2018-06-21] MEDS: RIVAROXABAN 15 MG TAB PO SCH (20:06)
[2018-06-21] MEDS: MELATONIN 3 MG TAB PO SCH (20:06)
[2018-06-21] MEDS: FERROUS SULFATE 325 MG TAB PO SCH (20:06)
[2018-06-21] MEDS: LATANOPROST 0.005% 2.5 ML OPHT DROPS EACHEYE SCH (20:12)
[2018-06-22] MEDS: FUROSEMIDE 100 MG/10 ML VIAL IVP SCH ×5 (01:11→23:12)
[2018-06-22] MEDS: Umeclidinium Brm/Vilanterol Tr [Anoro Ellipta 62.5-25 Mcg Inh] IH SCH (07:47)
[2018-06-22] MEDS: PRESERVISION AREDS2 FORMULA EYE VIT 1 EACH PO SCH ×2 (09:32→20:36)
[2018-06-22] MEDS: FOLIC ACID 1 MG TAB PO SCH (09:32)
[2018-06-22] MEDS: SPIRONOLACTONE 50 MG TAB PO SCH (09:32)
[2018-06-22] MEDS: DILTIAZEM CD 120 MG CAP PO SCH (09:32)
[2018-06-22] MEDS: FLUTICASONE NASAL 120 SPRAYS/16 GM MDI EACHNARE SCH (09:33)
[2018-06-22] MEDS: BRIMONIDINE 0.2% 5 ML OPHT.BTL EACHEYE SCH ×2 (09:33→20:39)
[2018-06-22] MEDS: THIAMINE HCL 100 MG TAB PO SCH (12:52)
[2018-06-22] MEDS: POTASSIUM CL 10 MEQ TAB PO SCH (12:53)
--- NOTE | 2018-06-22 13:49 | ECHO ---
[email or web address] [address] [address] Main: [phone] Echocardiography Examination Transthoracic Name: ARMANDO REGALADO MR#: [id number] Study Date: 06/22/2018 Study Time: 12:16 PM Date of : 1935 Age: 83 year(s) Height: 167.6 cm (66 in.) Weight: 115.21 kg (254 lb.) BSA: 2.21 m2 Gender: Male Examination: Echo Contrast: Image Quality: Technically Difficult Rhythm: Unknown Heart Rate: 86 bpm BP: 116 mmHg/69 mmHg Indication: acute CHF Procedure Staff Referring Physician: Bridge Crew Member: Adele Kearns [facility] Reading Physician: Nelia Cazares MD Requesting Provider: Ordering Physician: JEROMY Indication: acute CHF Measurements Chambers AV/MV Label Value Normal Value Label Value Normal Value LVOT Vmax 0.64 m/s (0.7m/s - 1.1m/s) AV PGmax 44 mmHg LVOTd 2.1 cm (1.9cm - 2.1cm) AV PGmean 26 mmHg LVOT VTI 16.1 cm (18cm - 22cm) AV Vmax 3.3 m/s LVDd, 2D 3.7 cm (4.2cm - 5.9cm) JIM (Vmax) 0.7 cm2 LVDs, 2D 2.3 cm (2.1cm - 4cm) JIM (VTI) 1.1 cm2 IVSd, 2D 1.2 cm (0.6cm - 1.1cm) MV E Vmax 1.07 m/s LVPWd, 2D 1.2 cm (0.6cm - 1cm) MV A Vmax 0.6 m/s LVEF, BP 63 % (55% - 70%) MV E/A 1.78 LVEF, 2D 71 % (54% - 74%) MV DT 151 ms LVOT PGmean 2 mmHg TV/PV LVOT Vmean 0.61 m/s Label Value Normal Value RVDd, 2D 4.2 cm (1.9cm - 3.8cm) RA Pressure 10 mmHg LADs, 2D 3.6 cm (3cm - 4cm) RVSP 36 mmHg RA Area 22 cm2 TR Pmax 26 mmHg Additional Vessels TR Vmax 2.55 m/s Label Value Normal Value PV PGmax 5 mmHg AoAsc 3.1 cm PV Vmax, Caliper 1.1 m/s (0.6m/s - 0.9m/s) AoRoot, MM 3.4 cm (2.2cm - 3.7cm) Patient: ARMANDO REGALADO Study Date: 06/22/2018 Page 1 of 3 12:16 PM Conclusions 1. The left ventricle is normal in size. Normal LV systolic function with an ejection fraction of 63%. No obvious regional wall motion abnormalities. Mild concentric LVH. 2. The right ventricle is mildly dilated with mild to moderately reduced RV systolic function 3. Mild left atrial dilation. Moderate right atrial dilation. 4. Otuw-bb-wdbszfjq mitral regurgitation. 5. Aortic valve is moderately calcified. Probably trileaflet. Mild aortic stenosis. 6. Mild tricuspid regurgitation with estimated PA systolic pressure of 36 mm Hg. 7. Compared with 10/05/2017 the RV is now mildly dilated with mild to mildly reduced systolic function. Celb-eq-xhljmxvl mitral regurgitation now present. Findings Left Ventricle: Left ventricle is normal in size. Normal global systolic left ventricular function. EF evaluated by EF (biplane Snyder's). The ejection fraction, measured by Simpsons method, is 63 %. EF range is estimated at 60 % - 65 %. There is mild concentric left ventricular hypertrophy. Although no diagnostic regional wall motion abnormality was identified, this possibility cannot be completely excluded on the basis of this study. Right Ventricle: Mildly dilated right ventricle. Mildly to moderately reduced RV function. Left Atrium: The left atrium is mildly dilated. Right Atrium: The right atrium is moderately dilated. Mitral Valve: Mild to moderate mitral regurgitation. No mitral valve stenosis. There is mild mitral annular calcification. Aortic Valve: No significant aortic valve regurgitation. There is mild aortic stenosis. Aortic leaflets exhibit mild to moderate calcification. The aortic valve is probably trileaflet. Aortic Valve Measurements AV Vmax is 3.30 m/s. AV PGmax is 44 mmHg. AV PGmean is 26 mmHg. LVOT VTI / AV VTI is 0.33. Tricuspid Valve: Tricuspid valve leaflets are structurally normal. Mild tricuspid regurgitation. Right Ventricular systolic pressure is measured at 36 mmHg. Pulmonic Valve: Pulmonic valve is poorly visualized. Aorta: The aortic root size in M-mode measures 3.4 cm. The aortic root exhibits normal size. The ascending aorta measures 3.1 cm. Ascending aorta is normal in size. Aorta Measurements AoRoot, MM is 3.4 cm. IVC: The inferior vena cava is poorly visualized. Pericardium: A pericardial fat pad is present. No pericardial effusion. Exam Details Procedure Ordered: Echo Procedure Status: Routine study Image Quality: Technically Difficult Facility Location: Cardiac Echo 1 Patient: ARMANDO REGALADO Study Date: 06/22/2018 Page 2 of 3 12:16 PM (No Signature Object) Patient: ARMANDO REGALADO Study Date: 06/22/2018 Page 3 of 3 12:16 PM [id number]
--- NOTE | 2018-06-22 14:26 | HOSPPROG ---
Hospitalist Progress Note Assessment/Plan: DIAGNOSES: * Acute right-sided and diastolic congestive heart failure with massive volume overload despite outpatient torsemide * Acute metabolic encephalopathy, with severe somnolence, very slow verbal and other interactions, cause of this is uncertain * Subtle weakness at right perioral musculature, isolated. I suspect this is due to his heart failure and encephalopathy but would consider possibility of a minimal stroke. Sounds like this has been present for a couple of days but getting history through the is very difficult. * Question of expressive aphasia was raised yesterday, but the history more consistent with encephalopathy and very slow interactions * Acute hypoxic and hypercarbic respiratory failure * Severe deconditioning, high fall risk and gait instability * Right ventricular dilation and dysfunction by echocardiogram * Nbch-se-zdodleay mitral regurgitation * Chronic AFib, rate controlled here and on chronic Xarelto * Known sleep apnea, the patient had stopped using his CPAP several months ago * COPD * Morbid obesity -So far is diuresing reasonably well with Lasix. Still quite a bit of fluid to remove -I am concerned that his encephalopathy may be due to CO2 retention, and this needs further assessment. I do not think he has had a cerebrovascular event but as he does have some very subtle weakness at the left perioral muscles will look to be certain he has not had a stroke. I believe that the weakness worsening is probably related to his encephalopathy and somnolence. Recent TSH is normal, liver and renal function stable, no signs of infection so far. -Since his last echo today's echo does show worsening RV dilation and function. PLANS: * Continue IV diuresis with q.6 hours Lasix * Check arterial blood gas to make sure he does not have significant respiratory acidosis * Will start CPAP here in the hospital, they do have an appointment to get him restarted on CPAP in the outpatient setting * MRI brain to rule out subtle left-sided stroke * Avoid sedating medications * Follow electrolytes closely with diuresis SUBJECTIVE: Patient states he feels "okay", denies any dyspnea or discomfort Per his he has been very sleepy through the day, hard to keep awake, not able to eat because he sleeping in chair, but she says he has not complained of any particular symptoms to her OBJECTIVE Vitals reviewed: All normal without fever 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 Does answer questions briefly. Again as yesterday he is very slow in responses and uses very few words. He does however follow commands. He has no weakness at all in upper or lower extremities and has normal arm pronation. Cranial nerves overall are entirely normal with the exception of a very subtle decrease in perioral strength right compared to left. His speech is articulate and easy to understand. He does not appear to have word-finding abnormality. skin warm dry color ok resps not labored lungs clear BSs heart regular abd remains distended and tense but not tender, bowel sounds present limbs warm, marked pitting edema remains in both legs and abdominal wall iv site ok Echocardiogram: RV dilation and systolic dysfunction have appeared since most recent echocardiogram. Still with jugx-je-dxdizdpv mitral regurgitation, pulmonary pressures are estimated at 36. Imaging: Abdominal ultrasound: I reviewed images with the radiologist which show absence of ascites, with significant air distention of bowel. Lab data: Stable basic metabolic panel, CO2 is a bit high at 32 Lipid panel shows LDL elevated at 116 Liver enzymes bilirubin unremarkable I reviewed with his , she shows me Health-[facility] fair lab results from earlier this month which did include a TSH of 2.2 Objective: Vital Signs Temp Pulse Resp BP Pulse Ox 36.9 C 75 18 111/66 93 06/22/18 12:00 06/22/18 12:00 06/22/18 12:00 06/22/18 12:00 06/22/18 12:00 Laboratory Results 06/22/18 03:52 06/21/18 06/22/18 06/23/18 06:59 06:59 06:59 Intake Total 300 Output Total 1350 350 Balance -1050 -350 PT 19.5 SEC (12.0-15.0) H 06/21/18 11:28 INR 1.74 (0.83-1.16) H 06/21/18 11:28 - Time Spent With Patient Time Spent with Patient: greater than 35 minutes Time Spent with Patient: Greater than 35 minutes spent on this patients care, greater than 50% of time spent counseling, educating, and coordinating care regarding the above mentioned plan. ICD10 Worksheet Patient Problems: Problems Problem Status Onset Transient cerebral ischemia Acute Bilateral lower leg cellulitis Acute CHF (congestive heart failure) Acute Hypokalemia Acute Hyponatremia Acute Multiple falls Acute Spondylolisthesis of lumbar region Acute Weakness Acute
--- NOTE | 2018-06-22 16:09 | ASMTCMCOM ---
CM Note CM Note Notes: Chart reviewed. Pt presented to the ED yesterday reportedly having decreased responsiveness and aphasia, which resolved by the time he and his , Aleksandr, arrived to the ED. Pt admitted for acute CHF w/massive volume overload, acute metabolic encephelopathy w/continued severe somnolence and slow reactions, NATI edema, and acute hypoxic resp failure; and question of liver disease w/ possible ascites or caput medusa presentation. Pt's PMH includes CHF, COPD, SCOTTY (supposed to be wearing CPAP but per Aleksandr pt's CPAP broke awhile ago and he has not been using it), A-fib, T2DM, morbid obesity and severe deconditioning (high fall risk, gait instability). Per chart review, pt lives with his , Aleksandr, in a 4-level home and wears 3L NC O2. Aleksandr i s the pt's primary caregiver. There is also concern that both the pt and Aleksandr have some memory loss / issues. MRI ordered to rule out subtle left sided stroke. OT recommending SNF. PT/DEHAIRING MACHINE TENDER ordered. CM to follow. Date Signed: 06/22/2018 04:08 PM Electronically Signed By:Betsey Aguilar RN
[2018-06-22] MEDS: MELATONIN 3 MG TAB PO SCH (20:36)
[2018-06-22] MEDS: RIVAROXABAN 15 MG TAB PO SCH (20:36)
[2018-06-22] MEDS: FERROUS SULFATE 325 MG TAB PO SCH (20:36)
[2018-06-22] MEDS: LATANOPROST 0.005% 2.5 ML OPHT DROPS EACHEYE SCH (20:38)
[2018-06-23] MEDS: FUROSEMIDE 100 MG/10 ML VIAL IVP SCH ×3 (06:18→17:57)
[2018-06-23] MEDS: DILTIAZEM CD 120 MG CAP PO SCH (09:00)
[2018-06-23] MEDS: ASPIRIN EC 81 MG TAB PO SCH (09:00)
[2018-06-23] MEDS: PRESERVISION AREDS2 FORMULA EYE VIT 1 EACH PO SCH ×2 (09:00→21:23)
[2018-06-23] MEDS: SPIRONOLACTONE 50 MG TAB PO SCH (09:00)
[2018-06-23] MEDS: FOLIC ACID 1 MG TAB PO SCH (09:00)
[2018-06-23] MEDS: FLUTICASONE NASAL 120 SPRAYS/16 GM MDI EACHNARE SCH (09:02)
[2018-06-23] MEDS: BRIMONIDINE 0.2% 5 ML OPHT.BTL EACHEYE SCH ×2 (09:03→21:24)
[2018-06-23] MEDS: Umeclidinium Brm/Vilanterol Tr [Anoro Ellipta 62.5-25 Mcg Inh] IH SCH (09:33)
[2018-06-23] MEDS: THIAMINE HCL 100 MG TAB PO SCH (13:11)
[2018-06-23] MEDS: POTASSIUM CL 10 MEQ TAB PO SCH (13:11)
--- NOTE | 2018-06-23 14:03 | ASMTCMCOM ---
CM Note CM Note Notes: CM reviewed pts chart. PT is recommending SNF. CM met w/ pt and his Aleksandr for dispo planning. Both are in agreement to going to SNF. They would like a referral made to [facility]. Pt has been to [facility] in the past and had a good experience. CM to follow. Plan: [facility] Date Signed: 06/23/2018 01:57 PM Electronically Signed By:JOZEF Patel
--- NOTE | 2018-06-23 18:10 | HOSPPROG ---
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 -taking Xarelto for AFib which had been started years ago in [place], but has valvular disease so may not be appropriate or effective -not on aspirin at home * Complex neurologic picture with acute stroke, progressive dementia, and progressive somnolence -difficult to discern what of his current neurologic exam is due to stroke, dementia, sleep deprivation from not using CPAP and others -most specific finding attributable to stroke mild right face weakness very subtle; whether he had true aphasic speech due to stroke very difficult to discern from 's history - also with some dementia has difficulty describing timing of his different functional changes but he clearly has had decreased activity and increased daytime somnolence going on for months -recent TSH done at [address] 2[address]2 earlier this month * Chronic AFib, rate controlled here and on chronic Xarelto - likely inappropriate anticoagulant given valvular disease with chronic moderate MR * Acute hypoxic and hypercarbic respiratory failure due to CHF, and obesity hypoventilation syndrome * Known sleep apnea, the patient had stopped using his CPAP several months ago when his machine broke, has appointment at sleep instead to to get new device * Severe deconditioning, high fall risk and gait instability * COPD, appear stable * Morbid obesity (note that at the time of admission was concerned about possible liver disease due to distended abdomen and caput medusa say on exam, but he does not have ascites on ultrasound or elevated liver enzymes.) Continues to diurese at a moderate rate with Lasix Remains severely somnolent, but arousable for brief conversation - this sounds like a fairly chronic symptom that is a bit worse now than usual Remains fairly disengaged with little to say - this sounds like a chronic symptom PLANS: * Continue IV diuresis with q.6 hours Lasix * Will begin changing his anticoagulation from Xarelto to Coumadin; given acute strokes would favor stopping Xarelto at this time and beginning Coumadin tomorrow as we would typically stay off anticoagulation briefly for the acute strokes; review with Neurology and Cardiology * Will start CPAP here in the hospital, they do have an appointment to get him restarted on CPAP in the outpatient setting * I have asked Dr. 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 Again he is quite somnolent but arousable for very brief conversation , and as the last 2 days he is slow to answer questions, answers with 1 or 2 words and does not volunteer any other conversation. He does not appear to have word-finding difficulty but difficult to assess. He seems fairly disinterested in engagement. No other focal weakness on my exam today but strength examination is difficult due to less than ideal participation. Speech is not slurred.. skin warm dry color ok resps not labored lungs very diminished but otherwise clear BSs heart regular abd remains distended, no longer as tense, and not tender, bowel sounds present limbs warm, edema somewhat decreased but still quite a bit of pitting edema bilaterally iv site ok Echocardiogram: RV dilation and systolic dysfunction have appeared since most recent echocardiogram. Still with ojvp-ki-rbbkxich mitral regurgitation, pulmonary pressures are estimated at 36. Imaging: Abdominal ultrasound: I reviewed images with the radiologist which show absence of ascites, with significant air distention of bowel. Lab data: Sugars in good range, potassium in good range Objective: Vital Signs Temp Pulse Resp BP Pulse Ox 36.8 C 78 18 110/65 90 L 06/23/18 16:00 06/23/18 16:00 06/23/18 16:00 06/23/18 16:00 06/23/18 16:00 Laboratory Results 06/23/18 03:55 06/22/18 06/23/18 06/24/18 06:59 06:59 06:59 Intake Total 300 350 Output Total 1350 1350 Balance -1050 -1000 PT 19.5 SEC (12.0-15.0) H 06/21/18 11:28 INR 1.74 (0.83-1.16) H 06/21/18 11:28 - Time Spent With Patient Time Spent with Patient: greater than 35 minutes Time Spent with Patient: Greater than 35 minutes spent on this patients care, greater than 50% of time spent counseling, educating, and coordinating care regarding the above mentioned plan. ICD10 Worksheet Patient Problems: Problems Problem Status Onset Chronic Disease [facility] Acute Transient cerebral ischemia Acute Bilateral lower leg cellulitis Acute CHF (congestive heart failure) Acute Hypokalemia Acute Hyponatremia Acute Multiple falls Acute Spondylolisthesis of lumbar region Acute Weakness Acute
--- NOTE | 2018-06-23 18:24 | GCON ---
[f rep st] CONSULTATION NEUROLOGY CONSULTATION REFERRING PHYSICIAN: Leo Nguyen MD CHIEF COMPLAINT: Stroke. HISTORY OF PRESENT ILLNESS: The patient is a very pleasant 83-year-old gentleman with multiple medical problems, including congestive heart failure; sleep apnea; underlying probable dementia, per patient's ; hypertension; chronic atrial fibrillation, on Xarelto; type 2 diabetes; obesity; and COPD. His states that he has had slowly progressive cognitive decline for 5+ years. He was brought to the hospital on Saturday because he seemed worse than normal in terms of his spontaneous verbal output and responsiveness to the environment. She states there were no focal symptoms initially, and she is not clear when the symptoms actually started. In any case, he was brought to the ED and had some encephalopathy, as well as acute congestive heart failure with dyspnea and pulmonary edema. Because of the encephalopathy, MRI was done today and shows acute subacute infarction in the left basal ganglia and anteroinferior lateral aspect of the left frontal lobe with a separate area of small infarct in the right frontal lobe. Prior to the MRI exam, it was found that he had some mild right lower facial droop but, otherwise, no other focal symptoms. Echocardiogram was also done which shows an ejection fraction of 63% , mild left atrial dilation, and mild to moderate mitral valve regurgitation. He also has some calcification of his atrial valve and mild stenosis. REVIEW OF SYSTEMS: A 10-point review of systems was done with his and only pertinent to the HPI. For past medical history, social history, family history, home medications, allergies, see Dr. Nguyen's H and P. PHYSICAL EXAM: VITAL SIGNS: Blood pressure 117/75, temperature 36.8, heart rate 80s. GENERAL: He was somewhat drowsy, undergoing carotid ultrasound during my exam. We did do a brief exam in between the ongoing ultrasound study. Essentially, the patient had right-sided facial weakness in an upper motor neuron pattern, affecting only the lower face. His right arm and right leg had symmetric strength compared to the left. Sensory exam to light touch was unremarkable. The patient was somewhat somnolent during exam and did not participate fully. IMPRESSION/PLAN: 1. Acute stroke. 2. Chronic atrial fibrillation, on Xarelto. 3. Congestive heart failure. This patient has had an acute stroke while on Xarelto for chronic atrial fibrillation. Therefore, we could consider this event a Xarelto failure. Discussed at length with the hospitalist and the patient's family. I suspect this was a cardioembolic event as he has bilateral acute infarcts in the right and left hemispheres. The larger area of stroke is in the left hemisphere. The manifestations likely include some behavioral changes, including anhedonia reported by his /encephalopathy and the right-sided facial droop. The right hemisphere stroke is likely silent based on its small size and location. As this could be considered a Xarelto failure, I recommend we discuss with Cardiology about switching him to a different oral anticoagulant, such as warfarin. Certainly, we would need Case Management and other therapies to help orchestrate ongoing care, including INR checks, etc. I also defer to therapies regarding ultimate disposition. We are checking a carotid ultrasound, as mentioned above, now. If there is any significant occlusive disease, we will discuss with the family. At this point, they are not interested in any kind of surgery and only interested in quality of life rather than any life-prolonging procedures, according to his . Plan discussed with Hospital Medicine. We will follow up on the above. Thank you for this consultation. Please do not hesitate to call if there are any questions or changes in the neurologic status of this patient. Seventy total minutes floor time; over 50% in direct counseling and coordination of care. /[id number]/MODL MTDD
[2018-06-23] MEDS: FERROUS SULFATE 325 MG TAB PO SCH (21:22)
[2018-06-23] MEDS: MELATONIN 3 MG TAB PO SCH (21:22)
[2018-06-23] MEDS: LATANOPROST 0.005% 2.5 ML OPHT DROPS EACHEYE SCH (21:25)
[2018-06-24] MEDS: FUROSEMIDE 100 MG/10 ML VIAL IVP SCH ×3 (04:30→12:16)
[2018-06-24 04:31] LABS: INR 1.5 (0.83-1.16); PROTIME(PATIENT) 17.4 SEC (12.0-15.0)
[2018-06-24] MEDS ORDERED: CLOPIDOGREL BISULFATE 75 MG TAB PO SCH (09:00)
[2018-06-24] MEDS: SPIRONOLACTONE 50 MG TAB PO SCH (09:22)
[2018-06-24] MEDS: PRESERVISION AREDS2 FORMULA EYE VIT 1 EACH PO SCH ×2 (09:22→20:52)
[2018-06-24] MEDS: FOLIC ACID 1 MG TAB PO SCH (09:22)
[2018-06-24] MEDS: DILTIAZEM CD 120 MG CAP PO SCH (09:24)
[2018-06-24] MEDS: ASPIRIN EC 81 MG TAB PO SCH (09:26)
[2018-06-24] MEDS: BRIMONIDINE 0.2% 5 ML OPHT.BTL EACHEYE SCH ×2 (10:01→20:52)
[2018-06-24] MEDS: FLUTICASONE NASAL 120 SPRAYS/16 GM MDI EACHNARE SCH (10:02)
[2018-06-24] MEDS: Umeclidinium Brm/Vilanterol Tr [Anoro Ellipta 62.5-25 Mcg Inh] IH SCH (10:02)
--- NOTE | 2018-06-24 11:17 | NEUROPROG ---
Assessment: 1. Acute stroke 2. Chronic atrial fibrillation 3. Congestive heart failure The patient is markedly improved today in terms of his level of alertness and interaction with the environment. I reviewed Hospital Medicine notes. Xarelto is discontinued and he will start warfarin tonight. I discussed this at length with the patient that it will take some time to become therapeutic in terms of his INR. Therefore, gives him a safety margin in terms of the risk of hemorrhagic conversion. However, there is some small risk for hemorrhagic conversion with the attendant morbidity and mortality. He understands. This was also discussed this . Carotid ultrasound did not show any significant stenosis. Therefore, the plan going forward will be warfarin for his chronic atrial fibrillation for stroke prophylaxis. He will need OT PT and speech therapy to make recommendations for ongoing care and disposition. His current level of cognitive impairment is consistent with premorbid cognitive changes and superimposed left anterior hemisphere stroke. No further recommendations now. We will continue to follow along p.r.n. Please do not hesitate to call for any questions or changes in neurologic status with this patient. Subjective: Patient improved today in terms of his alertness Objective: Vital Signs Temp Pulse Resp BP Pulse Ox 36.8 C 79 18 111/67 93 06/24/18 08:00 06/24/18 08:00 06/24/18 08:00 06/24/18 08:00 06/24/18 08:00 Laboratory Results 06/23/18 03:55 06/23/18 06/24/18 06/25/18 05:59 05:59 05:59 Intake Total 250 550 Output Total 1350 300 Balance -1100 250 PT 17.4 SEC (12.0-15.0) H 06/24/18 04:00 INR 1.50 (0.83-1.16) H 06/24/18 04:00 Awake and alert Interactive with the environment He named 5/5; followed commands 5/5; repeated 5/5 However, there was a paucity of spontaneous verbal output Right upper motor neuron facial weakness 35 total minutes floor time; over 50% counseling and coordination of care. Allergies/Adverse Reactions: No Known Allergies Allergy (Verified 03/24/18 17:45)
--- NOTE | 2018-06-24 11:25 | HOSPPROG ---
Hospitalist Progress Note Assessment/Plan: * Cardioembolic CVA - Xarelto failure -starting warfarin without bridge -ASA added * Acute on chronic diastolic/RH failure -presented with massive volume overload despite torsemide -IV lasix - check BMP * SCOTTY/Obesity hypoventilation - BMI 38 -recent CPAP non-compliance * Metabolic encephalopathy -confusion improving, still very somnolent * Afib -diltiazem, warfarin as above * Acute on chronic respiratory failure -up to 10L O2 last night - wean as able -recheck CXR Subjective: Somnolent but arousable, up to 10L last night Objective: Vital Signs Temp Pulse Resp BP Pulse Ox 36.8 C 79 18 111/67 93 06/24/18 08:00 06/24/18 08:00 06/24/18 08:00 06/24/18 08:00 06/24/18 08:00 Laboratory Results 06/23/18 03:55 06/23/18 06/24/18 06/25/18 05:59 05:59 05:59 Intake Total 250 550 Output Total 1350 300 Balance -1100 250 PT 17.4 SEC (12.0-15.0) H 06/24/18 04:00 INR 1.50 (0.83-1.16) H 06/24/18 04:00 d/w Sandra Vasquez cardiology PA - cardiology to consult - Physical Exam Constitutional: no apparent distress, appears nourished, not in pain Cardiovascular: regular rate and rhythym, no murmur, rub, or gallop Respiratory: no respiratory distress, no rales or rhonchi, clear to auscultation Gastrointestinal: normoactive bowel sounds, soft, non-tender abdomen, no palpable masses Skin: no rashes or abrasions, no fluctuance, no induration Neurologic: AAOx3 Psychiatric: encephalopathic, poor insight, poor judgement, poor memory, other ( somnolent but arouable), No interacting appropriately ICD10 Worksheet Patient Problems: Problems Problem Status Onset Chronic Disease [facility]/Transtional Care Acute Spondylolisthesis of lumbar region Acute CHF (congestive heart failure) Acute Bilateral lower leg cellulitis Acute Hyponatremia Acute Hypokalemia Acute Weakness Acute Multiple falls Acute Transient cerebral ischemia Acute
[2018-06-24] MEDS: POTASSIUM CL 10 MEQ TAB PO SCH (12:16)
[2018-06-24] MEDS: THIAMINE HCL 100 MG TAB PO SCH (12:16)
[2018-06-24 12:52] LABS: PLATELET COUNT 234 10^3/uL (150-400)
[2018-06-24] MEDS: WARFARIN SODIUM 5 MG TAB PO SCH (15:29)
--- NOTE | 2018-06-24 18:49 | GCON ---
[f rep st] CONSULTATION CARDIOLOGY CONSULTATION DATE OF CONSULTATION: 06/24/2018 REASON FOR CONSULTATION: We were asked by Dr. Jarrell of [facility] to evaluate the patient for his diastolic CHF. HISTORY OF PRESENT ILLNESS: The patient is an 83-year-old male, well known to [facility] due to h is multiple medical problems. These include morbid obesity with a BMI of 38, paroxysmal atrial fibri llation, chronic diastolic heart failure with mostly RV dysfunction, and SCOTTY. He was admitted on , due to diminished mentation. A noncontrast head CT showed nothing acute; however, followup brain MRI showed acute and subacute infarcts involving the left basal ganglia, anteroinferior lateral aspect of the left frontal lobe and a small 5 mm cortical infarct of the right posterior superior fr ontal convexity. He and his report that they have been compliant with Xarelto, and therefore, becky barahona is felt to be a Xarelto failure. Despite increasing doses of Demadex, with a recent dosing of 180 mg per day, he has been having incre ased weight gain. He was in and out of sleep during our interview, but his reports he has just been having more lower extremity edema prior to arrival. With initiation of IV Lasix, his weight has now decreased from 113 kg on presentation to 108 kg currently. They also report that he has not bee n compliant with his CPAP due to poor mask fit recently. There has been no noted fever, chills, or c ough recently. No chest pain. He is noted to be in atrial flutter, which has been asymptomatic in t his admission. PAST MEDICAL HISTORY: 1. Mostly right-sided heart failure. 2. Mild to moderate aortic stenosis. 3. COPD with interstitial lung disease. 4. Chronic hypoxic respiratory failure, typically on 2 L/minute at home. 5. Morbid obesity. 6. SCOTTY with noncompliant CPAP usage. 7. Paroxysmal atrial fibrillation. 8. Chronic kidney disease with creatinine between 1.3 and 1.5. 9. Mild carotid disease. 10. Hypertension. 11. Chronic back pain due to spinal stenosis. PAST SURGICAL HISTORY: Bicipital tendon repair, cataract surgery, hernia surgery. MEDICATIONS: Outpatient medications are reviewed. These are listed as torsemide, thiamin, spironola ctone, potassium, lidocaine, latanoprost, folic acid, ferrous sulfate, diltiazem CD, brimonidine, Louise salon Perles, nasal saline gel, Anoro Ellipta, rivaroxaban and Tylenol. Currently in the inpatient setting, he is on aspirin, Tessalon Perles, Alphagan, Dilt-CD, ferrous sul fate, Flonase, folic acid, IV Lasix 80 q.6 hours, latanoprost, lidocaine viscous gel, melatonin, pota ssium, spironolactone, thiamin, and warfarin. SOCIAL HISTORY: Patient is and his provides much of the details. He has moderate alcoh ol daily intake. He is a former smoker, having quit 35 years ago. He did have 25 pack years. FAMILY HISTORY: Myocardial infarction. REVIEW OF SYSTEMS: As per HPI. The review of systems is limited by patient being asleep through par t of the exam. ALLERGIES: No known drug allergies. PHYSICAL EXAMINATION: VITAL SIGNS: BP of 113/65, heart rate of 61, respirations 18, O2 saturation 9 1% on 3 L/minute. GENERAL: He is a pleasant male in no apparent distress. HEENT: Head is normocep halic, atraumatic. Eyes are without scleral icterus. HEART: Irregular rate and rhythm. LUNGS: Di minished bilaterally with bibasilar crackles. ABDOMEN: Obese, nontender. Normoactive bowel sounds. LOWER EXTREMITIES: Pedal edema. Venous static changes. No pitting edema present. PSYCH: The pa tient does not appear anxious. NEURO: Patient is oriented to person and time currently. LABORATORY AND X-RAY DATA: BMP with sodium 138, potassium 4.1, chloride 97, CO2 31, BUN 39, creatini ne 1.4, , glucose of 122. CBC with WBC 9.51, hemoglobin 17.3, hematocrit 55.7, platelet count of 234 . INR of 1.5. 12-lead ECG personally interpreted demonstrates atrial flutter with a V rate of 63. There was [address], 06/21/2018, shows no acute findings. Echocardiogram, 06/21/2018, shows EF of 63. Mild concentric LVH. Mildly dilated RV with mild to mod erately reduced RV systolic function. Moderate right atrial dilatation. Mild to moderate MR. Moder ately calcified aortic valve with mild aortic stenosis. Mild TR. RVSP of 36. Brain MRI, 06/23/2018, shows findings of bihemispheric stroke. Carotid Dopplers show mild disease. Right heart catheterization from 02/2016 shows right atrial pressure 14, pulmonary capillary wedge pr essure of 21, cardiac output of 6.8, cardiac index of 3.1 L/minute, PA is 50/25. Cardiolite stress test from 09/2014 shows LVEF of 68% with no ischemia. Today's chest x-ray shows left pleural fluid and CHF. NT proBNP is 276. LDL cholesterol from this admission is 116. Telemetry review shows atrial flutter. IMPRESSION AND PLAN: The patient is an 83-year-old male who presents with new onset of acute stroke. 1. Acute stroke. He has been seen by Neurology, who feels this was cardioembolic. He is thought to be a Xarelto failure. Xarelto has been stopped, and he has been started on warfarin. He will not b e bridged to allow for gradual increase into the therapeutic range of his INR to mitigate risk of hem orrhagic conversion. This was reviewed in Dr. Prado's neurology note. Given his elevated LDL, we do r ecommend that he be started on statin and this will be initiated now. 2. Atrial flutter. He has been noted to be in atrial flutter on the presenting EKG, as well as on t elemetry. Given his recent stroke, we would not want to pursue cardioversion. His rate does appear controlled. We will consider cardioversion in the next month. In the outpatient setting, he may be considered to convert to Eliquis. This will be reviewed with Neurology. His CHADS-VASc is at least 6. This warrants long-term anticoagulation. 3. Right greater than left heart failure. His lower extremity edema has improved now and his weight has come down nicely. He has known kidney dysfunction and is at his typical baseline currently. He likely can be continued on IV Lasix for another day and then converted to p.o. torsemide. We will a dd compressive stockings and advise on elevation given likely a venous static component to his lower extremity edema. 4. Untreated sleep apnea. This will need to be addressed in the outpatient setting. 5. Chronic hypoxic respiratory failure. His oxygen saturation is within normal limits. He has no e vidence of pneumonia on his chest x-ray. /[id number]/MODL
[2018-06-24] MEDS: MELATONIN 3 MG TAB PO SCH (20:52)
[2018-06-24] MEDS: LATANOPROST 0.005% 2.5 ML OPHT DROPS EACHEYE SCH (20:52)
[2018-06-24] MEDS: FERROUS SULFATE 325 MG TAB PO SCH (20:52)
[2018-06-25 04:56] LABS: INR 1.16 (0.83-1.16); PROTIME(PATIENT) 14.3 SEC (12.0-15.0)
[2018-06-25] MEDS: FUROSEMIDE 80 MG TAB PO SCH ×2 (08:15→15:54)
[2018-06-25] MEDS: ASPIRIN EC 81 MG TAB PO SCH (08:15)
[2018-06-25] MEDS: FOLIC ACID 1 MG TAB PO SCH (08:15)
[2018-06-25] MEDS: SPIRONOLACTONE 50 MG TAB PO SCH (08:15)
[2018-06-25] MEDS: PRESERVISION AREDS2 FORMULA EYE VIT 1 EACH PO SCH ×2 (08:15→21:27)
[2018-06-25] MEDS: ATORVASTATIN CALCIUM 10 MG TAB PO SCH (08:15)
[2018-06-25] MEDS: DILTIAZEM CD 120 MG CAP PO SCH (08:15)
[2018-06-25] MEDS: BRIMONIDINE 0.2% 5 ML OPHT.BTL EACHEYE SCH ×2 (08:16→19:41)
[2018-06-25] MEDS: FLUTICASONE NASAL 120 SPRAYS/16 GM MDI EACHNARE SCH (08:16)
[2018-06-25] MEDS: Umeclidinium Brm/Vilanterol Tr [Anoro Ellipta 62.5-25 Mcg Inh] IH SCH (10:01)
[2018-06-25] MEDS: THIAMINE HCL 100 MG TAB PO SCH (12:35)
[2018-06-25] MEDS: POTASSIUM CL 10 MEQ TAB PO SCH (12:35)
--- NOTE | 2018-06-25 15:51 | ASMTCMCOM ---
CM Note CM Note Notes: 06/25/2018 Case Management Note Discussed pt during rounds today. present. Palliative meeting today with . Please see note for details. Fax[facility] updates [facility] via [employer]. Discussed with Betsey on the phone. Aleksandr to contact michelle nunez to discuss discharge options. is considering hospice. Case Management d/c poc: [facility] vs home with hospice. Case Management to follow. Date Signed: 06/25/2018 03:50 PM Electronically Signed By:Rach Escobedo RN
[2018-06-25] MEDS: WARFARIN SODIUM 5 MG TAB PO SCH (15:54)
--- NOTE | 2018-06-25 16:12 | HOSPPROG ---
Hospitalist Progress Note Assessment/Plan: * Cardioembolic CVA - Xarelto failure -starting warfarin without bridge -ASA added * Acute on chronic diastolic/RH failure -presented with massive volume overload despite torsemide -IV lasix * SCOTTY/Obesity hypoventilation - BMI 38 -recent CPAP non-compliance * Metabolic encephalopathy -confusion improving, still very somnolent * Afib -diltiazem, warfarin as above * Acute on chronic respiratory failure -up to 10L O2 - now improving Subjective: Still extremely somnolent, briefly arousable Objective: Vital Signs Temp Pulse Resp BP Pulse Ox 36.9 C 64 18 117/64 93 06/25/18 16:00 06/25/18 16:00 06/25/18 16:00 06/25/18 16:00 06/25/18 16:00 Laboratory Results 06/24/18 12:35 06/25/18 03:58 06/24/18 06/25/18 06/26/18 05:59 05:59 05:59 Intake Total 550 450 740 Output Total 300 900 250 Balance 250 -450 490 PT 14.3 SEC (12.0-15.0) 06/25/18 03:58 INR 1.16 (0.83-1.16) 06/25/18 03:58 d/w Dr. Prado neurology - definitely NO lovenox bridge due to risk of hemorrhagic conversion CXR viewed,my personal interpretation is - poor inspiration, CHF - Physical Exam Constitutional: no apparent distress, appears nourished, not in pain Cardiovascular: regular rate and rhythym, no murmur, rub, or gallop, edema (2+) Respiratory: no respiratory distress, no rales or rhonchi, clear to auscultation Gastrointestinal: normoactive bowel sounds, soft, non-tender abdomen, no palpable masses Skin: no rashes or abrasions, no fluctuance, no induration Neurologic: No AAOx3 Psychiatric: encephalopathic, flat affect, poor insight, poor judgement, poor memory, No interacting appropriately ICD10 Worksheet Patient Problems: Problems Problem Status Onset Chronic Disease [facility]/Transtional Care Acute Spondylolisthesis of lumbar region Acute CHF (congestive heart failure) Acute Bilateral lower leg cellulitis Acute Hyponatremia Acute Hypokalemia Acute Weakness Acute Multiple falls Acute Transient cerebral ischemia Acute
--- NOTE | 2018-06-25 16:17 | PDCARPN ---
Cardiology Progress Note Chief Complaint: SOB Assessment/Plan: Assessment: 1. CVA - Xarelto failure warfarin initiated ASA added 2. 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 Acute on chronic respiratory failure On continuous oxygen Plan: Continue with Diuresis on PO Lasix. 06/25/18 16:14 Reviewed/Discussed With: family, multidisciplinary team Time Spent with Patient: greater than 25 minutes Time Spent with Patient: Greater than 25 minutes spent on this patients care, greater than 50% of time spent counseling, educating, and coordinating care regarding the above mentioned plan. Objective: Vital Signs (8 Hrs) Temp Pulse Resp BP Pulse Ox 06/25/18 16:00 36.9 C 64 18 117/64 93 06/25/18 12:03 37.0 C 80 18 101/57 L 88 L 06/25/18 11:33 37.1 C 76 20 107/89 H 93 06/25/18 10:01 75 17 91 L Intake/Output (24 Hrs) 06/24/18 06/25/18 06/26/18 05:59 05:59 05:59 Intake Total 550 450 740 Output Total 300 900 250 Balance 250 -450 490 Intake: Oral (ml) 550 450 740 Output: Urine (ml) 300 900 250 Toilet 300 900 250 Other: Weight 108.3 kg 108.363 kg Number of Voids Diapers/Briefs 1 1 Toilet 1 1 Number of Stools Toilet 1 Result Diagrams: 06/24/18 12:35 06/25/18 03:58 - Physical Exam Constitutional: no apparent distress, obese Cardiovascular: irregularly irregular Peripheral Pulses: 1+: dorsalis-pedis (R), dorsalis-pedis (L) Respiratory: reduced air movement, inspiratory crackles Gastrointestinal: no tenderness, No ascites Skin: warm, other (2+ Edema) Psychiatric: cooperative, not anxious, encephalopathic ICD10 Worksheet Patient Problems: Problems Problem Status Onset Chronic Disease [facility]/Transtional Care Acute Transient cerebral ischemia Acute Bilateral lower leg cellulitis Acute CHF (congestive heart failure) Acute Hypokalemia Acute Hyponatremia Acute Multiple falls Acute Spondylolisthesis of lumbar region Acute Weakness Acute
[2018-06-25] MEDS: MELATONIN 3 MG TAB PO SCH (21:27)
[2018-06-25] MEDS: LATANOPROST 0.005% 2.5 ML OPHT DROPS EACHEYE SCH (21:27)
[2018-06-25] MEDS: FERROUS SULFATE 325 MG TAB PO SCH (21:27)
[2018-06-26 04:47] LABS: INR 1.17 (0.83-1.16); PROTIME(PATIENT) 14.4 SEC (12.0-15.0)
[2018-06-26] MEDS: FOLIC ACID 1 MG TAB PO SCH (08:25)
[2018-06-26] MEDS: ASPIRIN EC 81 MG TAB PO SCH (08:25)
[2018-06-26] MEDS: FUROSEMIDE 100 MG/10 ML VIAL IVP SCH ×2 (08:25→14:23)
[2018-06-26] MEDS: DILTIAZEM CD 120 MG CAP PO SCH (08:25)
[2018-06-26] MEDS: ATORVASTATIN CALCIUM 10 MG TAB PO SCH (08:25)
[2018-06-26] MEDS: PRESERVISION AREDS2 FORMULA EYE VIT 1 EACH PO SCH ×2 (08:25→20:11)
[2018-06-26] MEDS: SPIRONOLACTONE 50 MG TAB PO SCH (08:25)
[2018-06-26] MEDS: FLUTICASONE NASAL 120 SPRAYS/16 GM MDI EACHNARE SCH (08:26)
[2018-06-26] MEDS: BRIMONIDINE 0.2% 5 ML OPHT.BTL EACHEYE SCH ×2 (08:26→18:20)
[2018-06-26] MEDS: Umeclidinium Brm/Vilanterol Tr [Anoro Ellipta 62.5-25 Mcg Inh] IH SCH (09:46)
--- NOTE | 2018-06-26 10:47 | NEUROPROG ---
Assessment: 1. Acute stroke 2. Chronic atrial fibrillation 3. Congestive heart failure Xarelto discontinued and warfarin started. INR is slowly trending up. I discussed this at length with the patient that it will take some time to become therapeutic in terms of his INR. Therefore, this gives him a safety margin in terms of the risk of hemorrhagic conversion. However, there is some small risk for hemorrhagic conversion and/or recurrent ischemic stroke with the attendant morbidity and mortality. He understands. This was also discussed this . After long discussion, the patient and primarily his agree with allowing the INR to slowly drift up rather than using bridging heparin as it may increase risk for hemorrhagic conversion. Carotid ultrasound did not show any significant stenosis. Therefore, the plan going forward will be warfarin for his chronic atrial fibrillation for stroke prophylaxis. He will need OT PT and speech therapy to make recommendations for ongoing care and disposition. His current level of cognitive impairment is consistent with premorbid cognitive changes and superimposed left anterior hemisphere stroke. Finally, they are thinking about palliative/hospice type care going forward. This is certainly reasonable to consider considering his multiple comorbidities an underlying conditions. No further recommendations now. We will continue to follow along p.r.n. Please do not hesitate to call for any questions or changes in neurologic status with this patient. Subjective: His feels he has improved in terms of alertness. Objective: Vital Signs Temp Pulse Resp BP Pulse Ox 36.8 C 73 16 114/51 L 92 06/26/18 06:55 06/26/18 09:52 06/26/18 09:52 06/26/18 06:55 06/26/18 09:52 Laboratory Results 06/24/18 12:35 06/26/18 03:42 06/25/18 06/26/18 06/27/18 05:59 05:59 05:59 Intake Total 450 1740 Output Total 900 750 350 Balance -450 990 -350 PT 14.4 SEC (12.0-15.0) 06/26/18 03:42 INR 1.17 (0.83-1.16) H 06/26/18 03:42 Somnolent, but arousable to voice 35 total minutes floor time; over 50% counseling and coordination of care. Allergies/Adverse Reactions: No Known Allergies Allergy (Verified 03/24/18 17:45)
--- NOTE | 2018-06-26 13:01 | PDCARPN ---
Cardiology Progress Note Assessment/Plan: Assessment: 1. CVA - Xarelto failure warfarin initiated ASA added 2. 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 Acute on chronic respiratory failure On continuous oxygen Plan: Continue with Diuresis on PO Lasix. 06/25/18 16:14 06/26/18 12:53 He is up in the chair eating and conversing much better today. His mentation is improved. His tells me he is often "better" in the morning. He denies SOB, H/A, or chest pain. Neurology evaluated him today. It is noted that his cognitive impairment is consistent with pre-morbid cognitive changes. Due to his chronic A Fib, he needs to continue anticoagulation therapy. He failed Xarelto. He is being loaded on Warfarin for anticoagulation. He and his understands the need for frequent monitoring of blood level INR. He had a outpatient Sleep Study and his brought in results. He will need to continue on oxygen and CPAP. He is doing better today. Reviewed/Discussed With: family (), multidisciplinary team Time Spent with Patient: greater than 25 minutes Time Spent with Patient: Greater than 25 minutes spent on this patients care, greater than 50% of time spent counseling, educating, and coordinating care regarding the above mentioned plan. Objective: Vital Signs (8 Hrs) Temp Pulse Resp BP Pulse Ox 06/26/18 11:29 36.6 C 76 20 113/78 90 L 06/26/18 09:52 73 16 92 06/26/18 06:55 36.8 C 68 18 114/51 L 89 L Intake/Output (24 Hrs) 06/25/18 06/26/18 06/27/18 05:59 05:59 05:59 Intake Total 450 1740 Output Total 900 750 350 Balance -450 990 -350 Intake: Oral (ml) 450 1740 Output: Urine (ml) 900 750 350 Toilet 900 750 350 Other: Weight 110 kg Number of Voids Diapers/Briefs 1 2 1 Toilet 1 Number of Stools Toilet 1 Result Diagrams: 06/24/18 12:35 06/26/18 03:42 - Physical Exam Constitutional: no apparent distress, obese Cardiovascular: no rubs, no gallops, irregularly irregular Respiratory: no crackles, reduced air movement Skin: warm Neurologic: AAOx3 Psychiatric: cooperative, interactive ICD10 Worksheet Patient Problems: Problems Problem Status Onset Chronic Disease Mg[facility]/Transtional Care Acute Spondylolisthesis of lumbar region Acute CHF (congestive heart failure) Acute Bilateral lower leg cellulitis Acute Hyponatremia Acute Hypokalemia Acute Weakness Acute Multiple falls Acute Transient cerebral ischemia Acute
[2018-06-26] MEDS: THIAMINE HCL 100 MG TAB PO SCH (13:05)
[2018-06-26] MEDS: POTASSIUM CL 10 MEQ TAB PO SCH (13:05)
--- NOTE | 2018-06-26 15:47 | ASMTCMCOM ---
CM Note CM Note Notes: 06/26/2018 Case Management Note Discussed pt in rounds this morning. Palliative meeting with Aleksandr today. Please see note for details. Updated [facility]. Anticipating d/c tomorrow. Per Palliative team, pt to discharge to SNF rehab with follow by [facility]. Likely will d/c from [facility] with hospice. Case Management d/c poc: [facility] rehab when medically ready. Case Management to follow. Date Signed: 06/26/2018 03:45 PM Electronically Signed By:Rach Escobedo RN
[2018-06-26] MEDS ORDERED: WARFARIN SODIUM 5 MG TAB PO ONE (16:00)
[2018-06-26] MEDS: WARFARIN SODIUM 5 MG TAB PO SCH (16:18)
--- NOTE | 2018-06-26 17:22 | HOSPPROG ---
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 Subjective: A little more awake Objective: Vital Signs Temp Pulse Resp BP Pulse Ox 36.5 C 65 20 108/65 95 06/26/18 16:00 06/26/18 16:00 06/26/18 16:00 06/26/18 16:00 06/26/18 16:00 Laboratory Results 06/24/18 12:35 06/26/18 03:42 06/25/18 06/26/18 06/27/18 05:59 05:59 05:59 Intake Total 450 1740 650 Output Total 892 783 7794 Balance -450 990 -350 PT 14.4 SEC (12.0-15.0) 06/26/18 03:42 INR 1.17 (0.83-1.16) H 06/26/18 03:42 - Physical Exam Constitutional: no apparent distress, appears nourished, not in pain Cardiovascular: regular rate and rhythym, no murmur, rub, or gallop Respiratory: no respiratory distress, no rales or rhonchi, clear to auscultation Gastrointestinal: normoactive bowel sounds, soft, non-tender abdomen, no palpable masses Skin: no rashes or abrasions, no fluctuance, no induration Neurologic: No AAOx3 Psychiatric: encephalopathic, poor insight, poor judgement, poor memory, No interacting appropriately, No agitated ICD10 Worksheet Patient Problems: Problems Problem Status Onset Chronic Disease [facility]an[facility]ional Care Acute Spondylolisthesis of lumbar region Acute CHF (congestive heart failure) Acute Bilateral lower leg cellulitis Acute Hyponatremia Acute Hypokalemia Acute Weakness Acute Multiple falls Acute Transient cerebral ischemia Acute
[2018-06-26] MEDS: LATANOPROST 0.005% 2.5 ML OPHT DROPS EACHEYE SCH (20:11)
[2018-06-26] MEDS: FERROUS SULFATE 325 MG TAB PO SCH (20:11)
[2018-06-26] MEDS: MELATONIN 3 MG TAB PO SCH (20:11)
[2018-06-27 04:53] LABS: INR 1.55 (0.83-1.16); PROTIME(PATIENT) 17.9 SEC (12.0-15.0)
[2018-06-27] MEDS: PRESERVISION AREDS2 FORMULA EYE VIT 1 EACH PO SCH (08:25)
[2018-06-27] MEDS: ASPIRIN EC 81 MG TAB PO SCH (08:25)
[2018-06-27] MEDS: FOLIC ACID 1 MG TAB PO SCH (08:25)
[2018-06-27] MEDS: DILTIAZEM CD 120 MG CAP PO SCH (08:25)
[2018-06-27] MEDS: SPIRONOLACTONE 50 MG TAB PO SCH (08:25)
[2018-06-27] MEDS: ATORVASTATIN CALCIUM 10 MG TAB PO SCH (08:25)
[2018-06-27] MEDS: FUROSEMIDE 100 MG/10 ML VIAL IVP SCH ×2 (08:26→15:07)
[2018-06-27] MEDS: BRIMONIDINE 0.2% 5 ML OPHT.BTL EACHEYE SCH (08:26)
[2018-06-27] MEDS: FLUTICASONE NASAL 120 SPRAYS/16 GM MDI EACHNARE SCH (08:27)
[2018-06-27] MEDS: Umeclidinium Brm/Vilanterol Tr [Anoro Ellipta 62.5-25 Mcg Inh] IH SCH (08:59)
--- NOTE | 2018-06-27 10:26 | NEUROPROG ---
Assessment: 1. Acute stroke 2. Chronic atrial fibrillation 3. Congestive heart failure Xarelto discontinued and warfarin started. INR is slowly trending up. I discussed this at length with the patient that it will take some time to become therapeutic in terms of his INR. Therefore, this gives him a safety margin in terms of the risk of hemorrhagic conversion. However, there is some small risk for hemorrhagic conversion and/or recurrent ischemic stroke with the attendant morbidity and mortality. He understands. This was also discussed this . After long discussion, the patient and primarily his agree with allowing the INR to slowly drift up rather than using bridging heparin as it may increase risk for hemorrhagic conversion. INR is 1.5 today. Carotid ultrasound did not show any significant stenosis. Therefore, the plan going forward will be warfarin for his chronic atrial fibrillation for stroke prophylaxis. He will need OT PT and speech therapy to make recommendations for ongoing care and disposition. His current level of cognitive impairment is consistent with premorbid cognitive changes and superimposed left anterior hemisphere stroke. Finally, they are thinking about palliative/hospice type care going forward. This is certainly reasonable to consider considering his multiple comorbidities an underlying conditions. No further recommendations now. We will continue to follow along p.r.n. Please do not hesitate to call for any questions or changes in neurologic status with this patient. Subjective: No new symptoms, more awake alert Objective: Vital Signs Temp Pulse Resp BP Pulse Ox 36.7 C 63 22 H 116/61 92 06/27/18 07:34 06/27/18 07:34 06/27/18 07:34 06/27/18 07:34 06/27/18 07:34 Laboratory Results 06/24/18 12:35 06/26/18 03:42 06/26/18 06/27/18 06/28/18 05:59 05:59 05:59 Intake Total 1740 1500 500 Output Total 750 1500 350 Balance 990 0 150 PT 17.9 SEC (12.0-15.0) H 06/27/18 03:35 INR 1.55 (0.83-1.16) H 06/27/18 03:35 The patient was more awake and alert an eating breakfast during exam today. I counseled him regarding his INR results and he seemed to understand. No convulsive movements in my presence 35 total minutes floor time; over 50% counseling and coordination of care. Allergies/Adverse Reactions: No Known Allergies Allergy (Verified 03/24/18 17:45)
[2018-06-27 10:47] VITALS: BP 111/71
--- NOTE | 2018-06-27 11:47 | PDCARPN ---
Cardiology Progress Note Assessment/Plan: Assessment: 1. CVA - Xarelto failure warfarin initiated ASA added 2. 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 Acute on chronic respiratory failure On continuous oxygen Plan: Continue with Diuresis on PO Lasix. 06/25/18 16:14 06/26/18 12:53 He is up in the chair eating and conversing much better today. His mentation is improved. His tells me he is often "better" in the morning. He denies SOB, H/A, or chest pain. Neurology evaluated him today. It is noted that his cognitive impairment is consistent with pre-morbid cognitive changes. Due to his chronic A Fib, he needs to continue anticoagulation therapy. He failed Xarelto. He is being loaded on Warfarin for anticoagulation. He and his understands the need for frequent monitoring of blood level INR. He had a outpatient Sleep Study and his brought in results. He will need to continue on oxygen and CPAP. He is doing better today. 06/27/18 11:39 Up in chair. Talkative this morning. Able to converse. Denies SOB or chest pain. Consider discharge on Demadex 40 mg QD. He has been on Demadex 20 mg previously and tolerated well. Currently on Lasix 80 mg BID. Objective: Vital Signs (8 Hrs) Temp Pulse Resp BP Pulse Ox 06/27/18 10:46 36.4 C 67 20 111/71 94 06/27/18 07:34 36.7 C 63 22 H 116/61 92 06/27/18 03:46 36.6 C 64 12 118/72 90 L Intake/Output (24 Hrs) 06/26/18 06/27/18 06/28/18 05:59 05:59 05:59 Intake Total 1740 1500 500 Output Total 750 1500 350 Balance 990 0 150 Intake: Oral (ml) 1740 1500 500 Output: Urine (ml) 750 1500 350 Toilet 750 1500 350 Other: Weight 110 kg 109.2 kg Number of Voids Diapers/Briefs 2 3 1 Toilet 2 Number of Stools Toilet 1 Result Diagrams: 06/24/18 12:35 06/26/18 03:42 ICD10 Worksheet Patient Problems: Problems Problem Status Onset Chronic Disease [facility]/Transtional Care Acute Spondylolisthesis of lumbar region Acute CHF (congestive heart failure) Acute Bilateral lower leg cellulitis Acute Hyponatremia Acute Hypokalemia Acute Weakness Acute Multiple falls Acute Transient cerebral ischemia Acute
[2018-06-27] MEDS: POTASSIUM CL 10 MEQ TAB PO SCH (11:52)
[2018-06-27] MEDS: THIAMINE HCL 100 MG TAB PO SCH (11:52)
--- NOTE | 2018-06-27 12:33 | PDCARPN ---
Cardiology Progress Note Assessment/Plan: Assessment: 1. CVA - Xarelto failure warfarin initiated ASA added 2. 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 Acute on chronic respiratory failure On continuous oxygen Plan: Continue with Diuresis on PO Lasix. 06/25/18 16:14 06/26/18 12:53 He is up in the chair eating and conversing much better today. His mentation is improved. His tells me he is often "better" in the morning. He denies SOB, H/A, or chest pain. Neurology evaluated him today. It is noted that his cognitive impairment is consistent with pre-morbid cognitive changes. Due to his chronic A Fib, he needs to continue anticoagulation therapy. He failed Xarelto. He is being loaded on Warfarin for anticoagulation. He and his understands the need for frequent monitoring of blood level INR. He had a outpatient Sleep Study and his brought in results. He will need to continue on oxygen and CPAP. He is doing better today. 06/27/18 11:39 Up in chair. Talkative this morning. Able to converse. Denies SOB or chest pain. Consider discharge on Demadex 100mg BID. He has been on Demadex 100 am, 80 deisi previously and tolerated well. Will have him follow up with Dr Saleem next week at [facility]. Currently on Lasix 80 mg BID with little response. May do better on Demadex. Cr 1.1 today. Previous Creatinine Baseline by clinic chart 1.3 06/27/18 12:27 Discussed plan with Hospitalist, Laura Jarrell MD Reviewed/Discussed With: hospitalist, multidisciplinary team Time Spent with Patient: greater than 25 minutes Time Spent with Patient: Greater than 25 minutes spent on this patients care, greater than 50% of time spent counseling, educating, and coordinating care regarding the above mentioned plan. Objective: Vital Signs (8 Hrs) Temp Pulse Resp BP Pulse Ox 06/27/18 10:46 36.4 C 67 20 111/71 94 06/27/18 07:34 36.7 C 63 22 H 116/61 92 Intake/Output (24 Hrs) 06/26/18 06/27/1819 05:59 05:59 05:59 Intake Total 1740 1500 950 Output Total 750 1500 450 Balance 990 0 500 Intake: Oral (ml) 1740 1500 950 Output: Urine (ml) 750 1500 450 Toilet 750 1500 450 Other: Weight 110 kg 109.2 kg Number of Voids Diapers/Briefs 2 3 1 Toilet 2 Number of Stools Toilet 1 Result Diagrams: 06/24/18 12:35 06/26/18 03:42 - Physical Exam Constitutional: no apparent distress Cardiovascular: no murmurs (mild), no rubs, irregularly irregular Respiratory: reduced air movement Skin: warm, No no edema Neurologic: AAOx3, other Psychiatric: cooperative, interactive ICD10 Worksheet Patient Problems: Problems Problem Status Onset Chronic Disease [facility]/Tran[facility]ional Care Acute Transient cerebral ischemia Acute Bilateral lower leg cellulitis Acute CHF (congestive heart failure) Acute Hypokalemia Acute Hyponatremia Acute Multiple falls Acute Spondylolisthesis of lumbar region Acute Weakness Acute
--- NOTE | 2018-06-27 12:45 | PDIAF ---
- Diagnosis Diagnosis: stroke, CHF exacerbation Code Status: Do Not Resuscitate - Medication Management Additional Medication Instructions: Starting warfarin WITHOUT bridge. Please monitor INR closely as this a new medication. Discharge Medications: electronically signed and located in the Home Medication List. - Orders Services needed: Physical Therapy, Occupational Therapy, Speech Language Pathologist Isolation Type: None Diet Texture: Dysphagia 2 - Mechanically Altered - Chopped, Ground, Thin Liquids , Meds Whole w/Liquids Weigh Patient: daily Additional Instructions: Outpatient palliative care Outpatient sleep study to resume CPAP Follow up appointments: Sandra OREILLY SatJuly 02 at 2:45 Will need Lab work: CMP and BNP prior to appointment. Rupert Saleem SaturdayJuly 14 at 1:15 - Labs/Radiology PT/INR Date: 06/30/18 - Follow Up Care Current Providers and Referrals: Ru Tello MD [Primary Care Provider] - As per Instructions Rupert Saleem MD [Medical Doctor] - follow up in 1 week (Sandra OREILLY July 02 at 2:45 Dr Saleem July 14 at 1:15)
--- NOTE | 2018-06-27 12:49 | ASMTLACE ---
LACE Length of stay for Answers: 4-6 days current admission Acuity / Level of Answers: Yes Care: Did the patient have an inpatient admission? Comorbidities - select Answers: Chronic pulmonary disease all that apply Congestive heart failure Other Notes: A-fib, sleep apnea (CPAP), COPD, # of Emergency department Answers: 1-2 visits in the last 6 months Score: 13 Date Signed: 06/27/2018 12:48 PM Electronically Signed By:Renata Matthew
--- NOTE | 2018-06-27 13:48 | ASDISCHSUM ---
Discharge Information Plan Status:SNF Medically Cleared to Leave: Discharge Date: D/C Disposition:Half-Way Facility [facility] D/C Disposition:Half-Way Facility Projected Discharge Date:06/23/2018 11:00 AM Transportation at D/C: Discharge Delay Reason: Follow-Up Date:06/23/2018 11:00 AM Discharge Slot: Final Diagnosis: Placement Information Referral Type:Palliative Care Referral ID:[id number] Provider Name:[facility] Address 1:[address] Phone Number: Address 2: Fax Number: City:[place] Selection Factors: State:[place] Referral Type:*Usp/SNF Referral ID:[id number] Provider Name:[facility] Address 1:[address] Address 2: City:[place] Selection Factors: State:[place] Patient Contact Information Contact Name:ULISES Relationship: Address:[address] Work Phone: City:[place] Alternate Phone: [facility]/Zip Code:[place] [address] Email: Financial Information Financial Class:Medicare Primary Plan Desc:MEDICARE INPATIENT Primary Plan Number:[id number] Secondary Plan Desc:[employer] FEDERAL PLAN Secondary Plan Number:[id number] Assessment Information LACE LACE Length of stay for Answers: 4-6 days current admission Acuity / Level of Answers: Yes Care: Did the patient have an inpatient admission? Comorbidities - select Answers: Chronic pulmonary disease all that apply Congestive heart failure Other Notes: A-fib, sleep apnea (CPAP), COPD, # of Emergency department Answers: 1-2 visits in the last 6 months Score: 13 Date Signed: 06/27/2018 12:48 PM Electronically Signed By:Renata Matthew [facility] Progress Note CM Note CM Note Notes: Chart reviewed. Pt presented to the ED yesterday reportedly having decreased responsiveness and aphasia, which resolved by the time he and his , Aleksandr, arrived to the ED. Pt admitted for acute CHF w/massive volume overload, acute metabolic encephelopathy w/continued severe somnolence and slow reactions, NATI edema, and acute hypoxic resp failure; and question of liver disease w/ possible ascites or caput medusa presentation. Pt's PMH includes CHF, COPD, SCOTTY (supposed to be wearing CPAP but per Aleksandr pt's CPAP broke awhile ago and he has not been using it), A-fib, T2DM, morbid obesity and severe deconditioning (high fall risk, gait instability). Per chart review, pt lives with his , Aleksandr, in a 4-level home and wears 3L NC O2. Aleksandr i s the pt's primary caregiver. There is also concern that both the pt and Aleksandr have some memory loss / issues. MRI ordered to rule out subtle left sided stroke. OT recommending SNF. PT/BOTTOM WORKER ordered. CM to follow. Date Signed: 06/22/2018 04:08 PM Electronically Signed By:Betsey Aguilar RN [facility] Progress Note CM Note CM Note Notes: CM reviewed pts chart. PT is recommending SNF. CM met w/ pt and his Aleksandr for dispo planning. Both are in agreement to going to SNF. They would like a referral made to [facility]. Pt has been to [facility] in the past and had a good experience. CM to follow. Plan: [facility] Date Signed: 06/23/2018 01:57 PM Electronically Signed By:JOZEF Patel [facility] CM Progress Note CM Note CM Note Notes: 06/25/2018 Case Management Note Discussed pt during rounds today. present. Palliative meeting today with . Please see note for details. Faxed updates to [facility] via [employer]. Discussed with Betsey on the phone. Aleksandr to contact michelle nunez to discuss discharge options. is considering hospice. Case Management d/c poc: [facility] vs home with hospice. Case Management to follow. Date Signed: 06/25/2018 03:50 PM Electronically Signed By:Rach Escobedo RN [facility] CM Progress Note CM Note CM Note Notes: 06/26/2018 Case Management Note Discussed pt in rounds this morning. Palliative meeting with Aleksandr today. Please see note for details. Updated [facility]. Anticipating d/c tomorrow. Per Palliative team, pt to discharge to SNF rehab with follow by [facility]. Likely will d/c from [facility] with hospice. Case Management d/c poc: [facility] when medically ready. Case Management to follow. Date Signed: 06/26/2018 03:45 PM Electronically Signed By:Rach Escobedo RN Case Management Discharge Plan Note Case Management Discharge Discharge Order Complete? Answers: Yes Patient to Obtain Answers: Other Notes: [facility] Medications Transportation Arranged Answers: Other Notes: [facility] set up wheelchair transport wi th o2 Transport will Pick (Date 06/27/2018 12:00 AM & Time) Faxed Final Orders Answers: Yes Notes: [facility] Agency/Facility Transfer Answers: Yes Notes: [facility] Report Printed & Faxed to Receiving Agency Discharge Comments Notes: Pt is being medically discharged to [facility]. CM sent final orders to [facility]. [facility] is setting up transportation with a wheelchair and o2. CM gave RN number to report. Date Signed: 06/27/2018 01:44 PM Electronically Signed By:Renata Matthew Intervention Information Intervention Type:*Incorrect Registration Date of Service:06/21/2018 05:42 PM Patient Type:Observation Staff Member:Bessy Stewart Hours: Discipline: Severity: Comment:
[2018-06-27] MEDS: WARFARIN SODIUM 5 MG TAB PO SCH (15:12)
[2018-06-27] MEDS ORDERED: TORSEMIDE 20 MG TAB PO ONE (15:15)
--- NOTE | 2018-06-27 16:29 | GDS ---
[f rep st] DISCHARGE SUMMARY DISCHARGE DIAGNOSES: 1. Acute stroke. 2. Acute on chronic diastolic and right heart failure. 3. Obstructive sleep apnea and obesity with hypoventilation. 4. Metabolic encephalopathy. 5. Atrial fibrillation. 6. Acute on chronic respiratory failure. HISTORY: The patient is an 83-year-old male, who presented with slowness in response time and cognit za change. Eventually, he had an MRI of the brain, which revealed a stroke as the etiology. The st roke involved the left basal ganglia, anterior-inferior aspect of the left frontal lobe, as well as a small stroke on the right. Distribution was consistent with cardioembolic stroke. He was on Xarelt o, so this is a Xarelto failure. Neurology is recommending changing to Coumadin. They do not recomm end bridging due to risk of hemorrhagic conversion. Recommendation is initiation of Coumadin with a slow increase of his INR up into goal range over the next few days. He is also started on a daily as pirin. The patient also had acute diastolic congestive heart failure with acute respiratory failure. Oxygen went up to 10 L. He has multiple recurrent admissions for CHF, which has been difficult to control. He was on high-dose torsemide at home and despite this, presented massively volume overloaded. He was diuresed with IV Lasix and responded nicely. We will increase his torsemide dose upon discharge to max dose of 100 mg p.o. b.i.d. He will follow up closely with Dr. Saleem. The patient's mental status remained very poor through much of his hospitalization. Per Neurology, t his was consistent with his stroke distribution. On the day of discharge, however, he is much less s omnolent, awake and conversant. Hospice was considered by the family, but in the end, they decided t o proceed with attempts at rehabilitation. He is transferring to [facility]. DISCHARGE MEDICATIONS: Please see computerized record for full detailed list of medications. 1. Aspirin 81 mg p.o. daily. 2. Warfarin 5 mg p.o. daily. 3. Lipitor 20 mg p.o. daily. 4. Demadex 100 mg p.o. b.i.d. ADDITIONAL DISCHARGE INSTRUCTIONS: 1. Outpatient palliative care. 2. Outpatient sleep study to resume CPAP. 3. Followup appointments made at [facility] with Dr. Saleem. 4. Dysphagia 2 diet. 5. Outpatient palliative care. 6. Monitor INR closely, as patient is new to Coumadin. No bridge recommended. Greater than 30 minutes' time was spent arranging this discharge. Patient is seen and examined by me on day of discharge. /[id number]/MODL
--- NOTE | 2018-06-28 10:28 | PDPCPN ---
Palliative Care Progress Note Assessment/Plan: Assessment: PALLIATIVE CARE NOTE [facility] [address] [place], [place] [address] (O) [phone](F) Name: Sergei Wright Age: 83 : 1935 Visit Type: Follow-up palliative visit Location: [facility] Date: 06/25/2018 DIAGNOSES: 1. Diastolic Heart Failure 2. COPD CC: SOB, fatigue. Inpatient admission and evaluation. HPI: Mr. Wright is an 82-year old male with COPD and CHF. He had a hospitalization Oct 2017 for severe anemia and SOB. Was found to have a GI bleed and CHF exacerbation. Was then in [facility] rehab for 1 month following hospitalization. He has now been home since December 2017 living with his Aleksandr. Over the last 2 months, the patient has had worsening symptoms of CHF, endorsing increased FIELDS, increased secretions throughout the day, increased oxygen needs, increased fatigue. He has been readmitted to the hospital with mental status changes. MRI is positive for both old and new infarct. His aphasia is slightly improved. He is sleeping significant amounts of time. Upon admission he weighed 113 kg and with aggressive diuresis he is now 108 kg. With the aggressive diuresis his creatinine has increased and diuresis has slowed. Extensive discussion with his today regarding goals of care and possible hospice care. Neurology is recommending that hospice is very appropriate at this time. PMH: atrial fibrillation (xarelto), iron-deficient anemia, obstructive sleep apnea, hypertension, chronic kidney disease (baseline Cr 1.3-1.4), 3 hospitalizations in last 1.5 years. Allergies: NKDA Family Hx: No family hx of cancer. Father with history of dementia- at 79 y/o ill for years with "everything" in [place], Mother at 86 y/o from heart attack. Social Hx: Childhood lived in [place]2 [place]) - father was career [employer]. Spent 11th birthday in , on the "[employer]" ship traveling to [place] Patient moved to [place] 1970. Met Merna at work and in 1971, both pt and had 2 boys when they met. Remaining 2 kids in [place], 1 [place], 1 [facility]. 6 grandchildren. 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 Traveling during [facility], via space available on cargo planes due to connections. Favorite place traveled to was [facility]. 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 Advance Directives: MDPOA, Advanced Directives & MOST complete. DNR MDPOA: Merna Wright Patient Goals of Care: 1. "Live a long healthy life free of medical intervention, plugs, and artificial means." 2. Not go back to the hospital. ACTIVE SYMPTOMS/ASSESSMENTS/RECOMMENDATIONS 1. CVA I 63.9: MRI indicates new as well as old infarcts in several regions. Slight improvement in aphasia today. 2. CHF I50.2 - worsening of congestive heart failure symptoms. Aggressive diuresis. Oxygen requirements have increased to 10 L MODIFIED [place] SYMPTOM ASSESSMENT SCALE 0-none; 1-3 mild; 4-6 moderate; 7-10 severe Unable to Respond: yes RISK FACTORS FOR ADMISSION AND READMISSION TO THE HOSPITAL: o NEEDS ASSISTANCE WITH ADL'S/FALL RISK o MEDICATION MANAGEMENT o >2 HOSPITALIZATIONS IN PAST 12 MONTHS OBJECTIVE FINDING Palliative Performance Score: 40% NYHA: CIV Weight: 232 (04/2017), 225lbs (12/2017) Neuro: minimal response HEENT: Normocephalic; atraumatic, wearing oxygen RESP: Diminished throughout. Left upper lobe expiratory wheezing. Occasional wet cough. CV: HR regularly irregular, +3 lower extremity edema GI: rotund, distended MSK: Well nourished SKIN: moist, warm Plan: PALLIATIVE SUMMARY: continue to follow during hospitalization for plan for disposition and possible hospice admission. TIME SPENT: [id number] 35 minutes >50% of the time spent counseling, educating and coordinating the above topics. Lefty Guerra [facility] Plan: 06/28/18 10:27 Objective: Vital Signs Temp Pulse Resp BP Pulse Ox 36.4 C 67 20 111/71 94 06/27/18 10:46 06/27/18 10:46 06/27/18 10:46 06/27/18 10:46 06/27/18 10:46 Laboratory Results 06/24/18 12:35 06/26/18 03:42 06/27/18 06/28/18 06/29/18 05:59 05:59 05:59 Intake Total 1500 950 Output Total 1500 700 Balance 0 250 PT 17.9 SEC (12.0-15.0) H 06/27/18 03:35 INR 1.55 (0.83-1.16) H 06/27/18 03:35 ICD10 Worksheet Patient Problems: Problems Problem Status Onset Bilateral lower leg cellulitis Acute CHF (congestive heart failure) Acute Chronic Disease [facility] Acute Hypokalemia Acute Hyponatremia Acute Multiple falls Acute Spondylolisthesis of lumbar region Acute Transient cerebral ischemia Acute Weakness Acute
== END 2018-06-27 15:50 | DRG 64 ==
LOC: OBSVTOIN 13:56 → F2W 15:30
PROVIDERS: ADMIT Internal Medicine; ATTEND Internal Medicine
DX: I63.40 Cerebral infarction due to embolism of unspecified cerebral artery (principal); I13.0 Hypertensive heart and chronic kidney disease with heart failure and stage 1 through stage 4 chronic kidney disease, or unspecified chronic kidney disease; I50.33 Acute on chronic diastolic (congestive) heart failure; G93.41 Metabolic encephalopathy; J96.20 Acute and chronic respiratory failure, unspecified whether with hypoxia or hypercapnia; J84.9 Interstitial pulmonary disease, unspecified; E66.2 Morbid (severe) obesity with alveolar hypoventilation; R29.703 NIHSS score 3; I50.810 Right heart failure, unspecified; N18.9 Chronic kidney disease, unspecified; R47.01 Aphasia; I48.0 Paroxysmal atrial fibrillation; H40.9 Unspecified glaucoma; J44.9 Chronic obstructive pulmonary disease, unspecified; G89.29 Other chronic pain; E11.9 Type 2 diabetes mellitus without complications; Z68.38 Body mass index [BMI] 38.0-38.9, adult; Z87.891 Personal history of nicotine dependence
CPT/HCPCS: 70551-PN; 84484-ER; 92507-GN; 92523-GN; 92526-GN; 97116-GP; 97161-GP; 97166-GO; 97530-GP; 97535-GO; J1940

== ENCOUNTER → 2018-08-22 | Outpatient (CLI) | payer OTHER | LOC: FACT 15:37 ==